=== PATIENT | female | born 1950 | race Caucasian/White ===

== ENCOUNTER 2018-05-20 15:37 | Inpatient (IN) ==
[2018-05-22] MEDS ORDERED: D5% in Water 1,000 ML IVC PRN (12:45)
[2018-05-22] MEDS ORDERED: Dextrose Gel 15 GM/37.5 ML TUBE PO PRN ×2 (12:45)
[2018-05-22] MEDS ORDERED: *HR* Dextrose 50 % in Water (Syg) 50 ML SYRINGE IVP PRN (12:45)
--- NOTE | 2018-05-22 14:33 | Internal Med History&Physical ---
Date of Encounter: 05/22/18 Time of Encounter: 14:30 Assessment and Plan (1) Status post total left knee replacement Current visit: Yes Status: Acute Patient is an admission for rehabilitation due to deconditioning secondary to a left total knee replacement. Patient had a elective left total knee replacement and per medical records had an uneventful recovery at an [facility]. Left knee incision appears healthy and intact with small amount of ecchymosis noticed surrounding incision. Slight swelling noted. We will continue with continuous icing. Pain is been well managed with current medications. Physical therapy evaluation with recommendations pending. We will continue on current anticoagulation. (2) Hypertension Current visit: Yes Status: Chronic Vital signs are stable. We will continue with current medications. Qualifiers: Hypertension type: essential hypertension Qualified Code(s): I10 - Essential (primary) hypertension (3) Depression Current visit: Yes Status: Chronic Patient currently denies any issues and appears to be interacting well with staff. We will continue with current medications. Qualifiers: Depression Type: unspecified Qualified Code(s): F32.9 - Major depressive disorder, single episode, unspecified (4) GERD (gastroesophageal reflux disease) Current visit: Yes Status: Chronic Patient denies any reflux. We will continue on current medications. Qualifiers: Esophagitis presence: without esophagitis Qualified Code(s): K21.9 - Gastro -esophageal reflux disease without esophagitis Internal Medicine - H&P: HPI Chief complaint: Left Total Knee Replacement Admitted From: Intrahospital Transfer Plans for Post Hospital Care: Home History of present illness: Ms. Gallardo is a 68 year old female who had a left total knee replacement at an [facility]. Per medical records patient had history of osteoarthritis, GERD , depression and hypertension. Patient states that she had an uneventful recovery and feels that she has been progressing well with physical therapy at the hospital prior to admission to this facility. Patient is here for physical therapy due to deconditioning secondary to her left total knee replacement. Patient states that she has some pain during mobilization but that has been tolerable and her pain medications have been effective. Patient denies any other discomforts or shortness of breath. Left knee currently has continuous icing and place. Past Med Surg Social Fam HX - Past Medical History Medical history: arthritis, DVT, diabetes, GERD Additional medical history: diverticulosis Psychiatric history: depression - Past Surgical History Surgical History: appendectomy, cancer surgery, cholecystectomy, orthopedic, other Additional surgical history: hx of throat nodules,r foot x2,inocencia carpal tunnel - Social History Smoking Status: Never smoker Smokeless Tobacco Status: No Alcohol use: unknown Drug use: unknown Internal Medicine - H&P: Meds Aspirin 81 mg PO DAILY 02/22/17 [History] Dicyclomine [Bentyl] 10 mg PO QID 02/22/17 [History] Escitalopram [Lexapro] 10 mg PO DAILY 02/22/17 [History] Gabapentin [Neurontin] 300 mg PO HS 02/22/17 [History] Metformin HCl [Glucophage] 1,000 mg PO BID 02/22/17 [History] [place]-3/Dha/Epa/Fish Oil [Fish Oil 1,000 mg Softgel] 1 each PO DAILY 02/22/17 [ History] Pantoprazole Sodium [Protonix] 40 mg PO DAILY 02/22/17 [History] Polyethylene Glycol 3350 [MiraLAX Powder Bulk 17.9 Oz] 1 scoop PO DAILY [History] Solifenacin Succinate [Vesicare] 5 mg PO DAILY 02/22/17 [History] Sulindac 200 mg PO BID 02/22/17 [History] Tea Tree Oil [Tea Tree] 1 appl TP DAILY 02/22/17 [History] Tizanidine HCl 2 mg PO Q8H PRN 02/22/17 [History] Cephalexin [Keflex] 500 mg PO TID #21 capsule 09/19/17 [Rx] Ranitidine HCl [Acid Commercial Portfolio Manager] 75 mg PO BID 09/19/17 [History] Topiramate [Topamax] 100 mg PO DAILY 09/19/17 [History] 3 Allergy/AdvReac Type Severity Reaction Status Date / Time No Known Allergies Allergy Verified 02/22/17 12:23 All Systems PM: A 10-system review of systems was performed and is negative for pertinent findings except as documented above in the HPI. - Constitutional Constitutional: no chills, no fever(s), no night sweats - EENT Eyes: no change in vision, no discharge, no pain, no photophobia Ears: no ear discharge, no ear pain, no tinnitus Nose, mouth and throat: no dysphagia, no nasal discharge, no neck pain, no sore throat - Cardiovascular Cardiovascular ROS IM: no chest pain, no diaphoresis, no dyspnea, no lightheadedness, no palpitations, no syncope - Respiratory Respiratory: no cough, no dyspnea, no wheezing, no excessive phlegm production - Gastrointestinal Gastrointestinal: no abdominal pain, no diarrhea, no hematemesis, no hematochezia, no melena, no nausea, no vomiting - Genitourinary Genitourinary: no change in urinary stream, no dysuria, no flank pain, no hematuria - Musculoskeletal Musculoskeletal ROS IM: no numbness, no tingling - Integumentary Integumentary IM: no rash, no unusual bruising - Neurological Neurological ROS: no confusion, no convulsions, no focal weakness, no numbness, no tingling, no tremor(s) - Hematologic/Lymphatic Hematologic/Lymphatic: no easy bruising - Constitutional Vitals: Temp Pulse Resp BP Pulse Ox 98.5 F 71 17 112/56 97 05/22/18 12:14 05/22/18 12:14 05/22/18 12:14 05/22/18 12:14 05/22/18 12:14 General appearance: Present: A&O X 3 - Head Head exam: Present: atraumatic, normocephalic - Eye Eye exam: Present: PERRL, conjuntiva pink, sclera anicteric Pupils: Present: PERRL - Neck Neck exam general surgery: Present: supple, trachea midline. Absent: lymphadenopathy - Respiratory Respiratory exam: Present: CTAB. Absent: accessory muscle use, rales, rhonchi, wheezes - Cardiovascular Cardiovascular exam: Present: RRR, +S1, +S2. Absent: diastolic murmur, gallop, rubs, systolic murmur - GI/Abdominal GI/Abdominal exam: Present: normal bowel sounds, soft, no peritoneal signs. Absent: distended, tenderness - Extremities Exam Extremities exam: Present: warm, radial pulses palpable and symmetrical. Absent : calf tenderness, cyanotic, pedal edema Additional comments: Left knee with a midline incision with small amount of ecchymosis noted surrounding the incision. Incision appears healthy and intact. Knee has continuous icing and place. Slight edema noted. Distal CV checks within normal limits - Neurological Exam Neurological exam: Present: CN II-XII intact, oriented X3, no focal deficits. Absent: pronater drift, facial droop, speech deficit - Skin Skin exam: Present: dry, intact - VTE Documentation of Mechanical Device: Graduated compression elastic hosiery
[2018-05-22] MEDS: Insulin LISPRO 300 UNITS/3 ML VIAL SQ SCH ×2 (16:22→20:15)
[2018-05-22] MEDS: *HR* Metformin 500 MG TABLET PO SCH (16:31)
[2018-05-22] MEDS: Melatonin 3 MG TABLET PO SCH (20:10)
[2018-05-22] MEDS: *HR* OxyCODONE Immed Rel 5 MG TABLET PO PRN (20:10)
[2018-05-22] MEDS: Gabapentin 300 MG CAPSULE PO SCH (20:10)
[2018-05-23] MEDS: *HR* OxyCODONE Immed Rel 5 MG TABLET PO PRN ×4 (02:19→21:22)
[2018-05-23] MEDS: *HR* Enoxaparin 40 MG/0.4 ML SYRINGE SQ SCH (05:00)
[2018-05-23 08:31] LABS: INR 1.2; Prothrombin Time 13.9 Seconds (9.4-12.1)
[2018-05-23 08:34] LABS: Activated Partial Thrombo Time 34.1 Seconds (26.0-36.0)
[2018-05-23 08:36] LABS: Basophils # 0.1 K/mcL (0.0-0.2); Basophils % 0.7 %; Eosinophils # 0.1 K/mcL (0.0-0.6); Eosinophils % 1.9 %; Hematocrit 27.8 % (35.3-44.9); Hemoglobin 9.3 g/dL (11.5-15.4); Immature Granulocytes % 5.1 % (0-4); Lymphocytes # 1.4 K/mcL (0.6-4.6); Lymphocytes % 19.3 %; Mean Corpuscular HGB Conc 33.5 g/dL (31.6-35.5); Mean Corpuscular Hemoglobin 30.9 pg (28.0-33.3); Mean Corpuscular Volume 92.4 fL (83.0-100.0); Mean Platelet Volume 10.7 fL (9.4-12.4); Monocytes # 0.5 K/mcL (0.0-1.3); Monocytes % 6.5 %; Neutrophils # 4.8 K/mcL (1.6-8.9); Platelet Count 205 K/mcL (140-400); Red Blood Count 3.01 M/mcL (3.82-4.97); Segmented Neutrophils % 66.5 %
[2018-05-23] MEDS: Insulin LISPRO 300 UNITS/3 ML VIAL SQ SCH ×4 (08:55→21:12)
[2018-05-23] MEDS: Cholecalciferol (D-3) 1,000 UNIT TABLET PO SCH (08:59)
[2018-05-23] MEDS: *HR* Metformin 500 MG TABLET PO SCH ×2 (08:59→17:02)
[2018-05-23] MEDS: Aspirin 81 MG TAB.CHEW PO SCH (08:59)
[2018-05-23 10:04] LABS: BUN/Creatinine Ratio 20 (6-26); Blood Urea Nitrogen 15 mg/dL (8-23); Calcium 9.2 mg/dL (8.6-10.3); Carbon Dioxide 30 mEq/L (23-29); Chloride 101 mEq/L (98-107); Glucose 129 mg/dL (70-105); Osmolality,Calculated 287 (280-300); Potassium 4.3 mEq/L (3.5-5.1); Sodium 137 mEq/L (136-145); eGFR For Non-African Americans > 60 (> 60)
[2018-05-23 10:13] LABS: Platelet Estimate Normal (Normal)
[2018-05-23] MEDS: Melatonin 3 MG TABLET PO SCH (21:21)
[2018-05-23] MEDS: Gabapentin 300 MG CAPSULE PO SCH (21:22)
[2018-05-24] MEDS: *HR* OxyCODONE Immed Rel 5 MG TABLET PO PRN ×3 (03:02→20:23)
[2018-05-24] MEDS: *HR* Enoxaparin 40 MG/0.4 ML SYRINGE SQ SCH (05:25)
[2018-05-24] MEDS: Aspirin 81 MG TAB.CHEW PO SCH (08:20)
[2018-05-24] MEDS: Cholecalciferol (D-3) 1,000 UNIT TABLET PO SCH (08:20)
[2018-05-24] MEDS: *HR* Metformin 500 MG TABLET PO SCH ×2 (08:20→17:37)
[2018-05-24] MEDS: Insulin LISPRO 300 UNITS/3 ML VIAL SQ SCH ×4 (08:20→20:25)
--- NOTE | 2018-05-24 12:56 | Internal Med Progress Note ---
Date of Encounter: 05/24/18 Time of Encounter: 12:40 - Assessment and plan (1) Status post total left knee replacement Current Visit: Yes Status: Acute Assessment and plan: Routine care/management per PT. (2) Hypertension Current Visit: Yes Status: Chronic Assessment and plan: Continue current regimen. Qualifiers: Hypertension type: essential hypertension Qualified Code(s): I10 - Essential (primary) hypertension (3) Depression Current Visit: Yes Status: Chronic Assessment and plan: Continue current regimen. Qualifiers: Depression Type: unspecified Qualified Code(s): F32.9 - Major depressive disorder, single episode, unspecified (4) GERD (gastroesophageal reflux disease) Current Visit: Yes Status: Chronic Assessment and plan: Continue current regimen. Qualifiers: Esophagitis presence: without esophagitis Qualified Code(s): K21.9 - Gastro -esophageal reflux disease without esophagitis (5) Dark stools Current Visit: Yes Status: Acute Assessment and plan: Will obtain FOBT and H&H; will manage accordingly. - Time Spent With Patient less than 15 minutes - Subjective Interval history: Left knee has been doing great; some pain after PT, but adequately controlled with the current pain regimen. In addition, the patient has noticed that her stools have been really dark. - Constitutional Vitals: Temp Pulse Resp BP Pulse Ox 99.6 F 66 16 110/70 99 05/24/18 11:35 05/24/18 11:35 05/24/18 11:35 05/24/18 11:35 05/24/18 11:35 General appearance: Present: A&O X 3 Exam: Gen: A&Ox3, NAD. HEENT: NCAT. Neck: No palpable lymphadenopathy or thyromegaly. CV: RRR, S1S2. No murmur. Capillary refill < 2 seconds. Pulm: CTAB. Abd: (+)BS. NDNT. Neuro: LLE weakness due to left knee pain, otherwise non-focal. Skin: No rash. Ext: No pitting edema. Internal Medicine: Result - Labs CBC & Chem 7: 05/23/18 07:30 05/23/18 07:30 - ABG Interpretation ABG results: PT/INR, D-dimer PT 13.9 Seconds (9.4-12.1) H 05/23/18 07:30 - VTE Documentation of Mechanical Device: Graduated compression elastic hosiery Consult Discharge Plan - Plan Referrals: Ortiz Marti MD [Primary Care Provider] -
[2018-05-24 13:51] LABS: Hematocrit 29.1 % (35.3-44.9); Hemoglobin 9.8 g/dL (11.5-15.4)
[2018-05-24] MEDS: Gabapentin 300 MG CAPSULE PO SCH (20:22)
[2018-05-24] MEDS: Melatonin 3 MG TABLET PO SCH (20:22)
[2018-05-25] MEDS: *HR* OxyCODONE Immed Rel 5 MG TABLET PO PRN ×3 (01:55→18:26)
[2018-05-25 02:41] LABS: Basophils % 0.4 %; Eosinophils # 0.1 K/mcL (0.0-0.6); Immature Granulocytes % 4.3 % (0-4); Lymphocytes # 1.2 K/mcL (0.6-4.6); Lymphocytes % 16.8 %; Mean Corpuscular HGB Conc 33.3 g/dL (31.6-35.5); Mean Corpuscular Hemoglobin 31.3 pg (28.0-33.3); Mean Corpuscular Volume 93.8 fL (83.0-100.0); Mean Platelet Volume 10.1 fL (9.4-12.4); Monocytes # 0.6 K/mcL (0.0-1.3); Monocytes % 8.6 %; Neutrophils # 4.8 K/mcL (1.6-8.9); Platelet Count 229 K/mcL (140-400); Red Blood Count 2.88 M/mcL (3.82-4.97); Red Cell Distribution Width 13.3 % (11.5-14.5); Segmented Neutrophils % 67.9 %
[2018-05-25 02:57] LABS: Alanine Aminotransferase 10 Units/L (7-52); Albumin 3.3 g/dL (3.5-5.7); Albumin/Globulin Ratio 1.3 (1.1-2.2); Alkaline Phosphatase 42 Units/L (34-104); Aspartate Amino Transferase 20 Units/L (13-39); BUN/Creatinine Ratio 23 (6-26); Bilirubin,Total 0.8 mg/dL (0.3-1.0); Blood Urea Nitrogen 19 mg/dL (8-23); Calcium 9.1 mg/dL (8.6-10.3); Carbon Dioxide 29 mEq/L (23-29); Chloride 100 mEq/L (98-107); Globulin 2.5 g/dL (2.4-3.5); Glucose 134 mg/dL (70-105); Osmolality,Calculated 286 (280-300); Potassium 4.1 mEq/L (3.5-5.1); Sodium 136 mEq/L (136-145); Total Protein 5.8 g/dL (6.4-8.9); eGFR For Non-African Americans > 60 (> 60)
[2018-05-25] MEDS ORDERED: Isovue-370 500 ML INFUS..BTL IV ONE (03:35)
[2018-05-25] MEDS: *HR* Enoxaparin 40 MG/0.4 ML SYRINGE SQ SCH (06:18)
[2018-05-25] MEDS: Cholecalciferol (D-3) 1,000 UNIT TABLET PO SCH (08:09)
[2018-05-25] MEDS: Aspirin 81 MG TAB.CHEW PO SCH (08:09)
[2018-05-25] MEDS: Insulin LISPRO 300 UNITS/3 ML VIAL SQ SCH ×4 (08:09→21:17)
--- NOTE | 2018-05-25 08:49 | Internal Med Progress Note ---
Date of Encounter: 05/25/18 Time of Encounter: 08:30 - Assessment and plan (1) Status post total left knee replacement Current Visit: Yes Status: Acute Assessment and plan: Routine care/management per PT. (2) Hypertension Current Visit: Yes Status: Chronic Assessment and plan: Continue current regimen. Qualifiers: Hypertension type: essential hypertension Qualified Code(s): I10 - Essential (primary) hypertension (3) Depression Current Visit: Yes Status: Chronic Assessment and plan: Continue current regimen. Qualifiers: Depression Type: unspecified Qualified Code(s): F32.9 - Major depressive disorder, single episode, unspecified (4) GERD (gastroesophageal reflux disease) Current Visit: Yes Status: Chronic Assessment and plan: Continue current regimen. Qualifiers: Esophagitis presence: without esophagitis Qualified Code(s): K21.9 - Gastro -esophageal reflux disease without esophagitis (5) Dark stools Current Visit: Yes Status: Acute Assessment and plan: H&H overall stable. Awaiting FOBT. Will continue to monitor. (6) Elevated d-dimer Current Visit: Yes Status: Acute Assessment and plan: - CTPE (-) for clot, but has a RLL nodule, which will need to followed up outpatient. - DVT scan in process, will manage accordingly. - Subjective Interval history: Had an eventful night, with diaphoresis, paleness, a one-time episode of CP, and possible syncope. Patient reports feeling much better this morning and does not have anymore CP. Reassured that she did not have a PE. Also reassured that EKG was non-ischemic and troponin was (-). - Constitutional Vitals: Temp Pulse Resp BP Pulse Ox 98.2 F 81 16 107/64 99 05/25/18 07:49 05/25/18 07:49 05/25/18 07:49 05/25/18 07:49 05/25/18 07:49 General appearance: Present: A&O X 3 Exam: Gen: A&Ox3, NAD. HEENT: NCAT. Neck: No palpable lymphadenopathy or thyromegaly. CV: RRR, S1S2. No murmur. Capillary refill < 2 seconds. Pulm: CTAB. Abd: (+)BS. NDNT. Neuro: LLE weakness due to left knee pain, otherwise non-focal. Skin: No rash. Ext: No pitting edema. Internal Medicine: Result - Labs CBC & Chem 7: 05/25/18 02:30 05/25/18 02:30 Labs: Short CBC 05/24/18 05/25/18 Range/Units 13:45 02:30 WBC 7.0 (4.3-11.1) K/mcL Hgb 9.8 L 9.0 L (11.5-15.4) g/dL Hct 29.1 L 27.0 L (35.3-44.9) % Plt Count 229 (140-400) K/mcL Neutrophils # 4.8 (1.6-8.9) K/mcL BMP 05/25/18 02:30 Sodium 136 Potassium 4.1 Chloride 100 Carbon Dioxide 29 BUN 19 Creatinine 0.82 Glucose 134 H Calcium 9.1 Cardiac Enzymes 05/25/18 Range/Units 02:30 Troponin I < 0.03 (< 0.04) ng/mL Liver Function 05/25/18 Range/Units 02:30 Total Bilirubin 0.8 (0.3-1.0) mg/dL AST 20 (13-39) Units/L ALT 10 (7-52) Units/L Alkaline Phosphatase 42 (34-104) Units/L Albumin 3.3 L (3.5-5.7) g/dL - ABG Interpretation ABG results: PT/INR, D-dimer PT 13.9 Seconds (9.4-12.1) H 05/23/18 07:30 D-Dimer 6401 ng/mLFEU (0-500) H 05/25/18 02:30 - Impressions Impressions Chest CTA 05/25/18 03:35 IMPRESSION: 1. No definite scan evidence for pulmonary embolus. 2. Enlarging subsolid right lower lobe pulmonary nodule with central lucency. D/ / Romie Wilder MD / Romie Wilder MD Interpreting Provider: Romie Wilder MD - VTE Documentation of Mechanical Device: Graduated compression elastic hosiery Consult Discharge Plan - Plan Referrals: Ortiz Marti MD [Primary Care Provider] -
[2018-05-25] MEDS ORDERED: *HR* Enoxaparin 60 MG/0.6 ML SYRINGE SQ ONE (10:03)
[2018-05-25] MEDS: *HR* Enoxaparin 100 MG/ML SYRINGE SQ SCH (18:24)
[2018-05-25] MEDS: Gabapentin 300 MG CAPSULE PO SCH (21:17)
[2018-05-25] MEDS: Melatonin 3 MG TABLET PO SCH (21:17)
[2018-05-26] MEDS: *HR* OxyCODONE Immed Rel 5 MG TABLET PO PRN ×3 (03:22→21:06)
[2018-05-26] MEDS: *HR* Enoxaparin 100 MG/ML SYRINGE SQ SCH ×2 (05:52→17:04)
[2018-05-26 06:18] LABS: Basophils % 0.5 %; Eosinophils # 0.1 K/mcL (0.0-0.6); Eosinophils % 2.3 %; Hematocrit 26.5 % (35.3-44.9); Hemoglobin 8.8 g/dL (11.5-15.4); Immature Granulocytes % 4.7 % (0-4); Lymphocytes # 1.3 K/mcL (0.6-4.6); Lymphocytes % 21.7 %; Mean Corpuscular HGB Conc 33.2 g/dL (31.6-35.5); Mean Corpuscular Hemoglobin 30.9 pg (28.0-33.3); Mean Platelet Volume 10.3 fL (9.4-12.4); Monocytes # 0.6 K/mcL (0.0-1.3); Monocytes % 9.9 %; Neutrophils # 3.8 K/mcL (1.6-8.9); Nucleated Red Blood Cells 0.3 /100 WBC (0); Platelet Count 243 K/mcL (140-400); Red Blood Count 2.85 M/mcL (3.82-4.97); Red Cell Distribution Width 13.4 % (11.5-14.5); Segmented Neutrophils % 60.9 %
[2018-05-26 06:33] LABS: BUN/Creatinine Ratio 20 (6-26); Blood Urea Nitrogen 15 mg/dL (8-23); Calcium 9.1 mg/dL (8.6-10.3); Carbon Dioxide 29 mEq/L (23-29); Chloride 101 mEq/L (98-107); Glucose 113 mg/dL (70-105); Osmolality,Calculated 284 (280-300); Potassium 3.8 mEq/L (3.5-5.1); Sodium 136 mEq/L (136-145); eGFR For Non-African Americans > 60 (> 60)
[2018-05-26] MEDS: Insulin LISPRO 300 UNITS/3 ML VIAL SQ SCH ×4 (07:52→20:29)
[2018-05-26] MEDS: Cholecalciferol (D-3) 1,000 UNIT TABLET PO SCH (08:44)
[2018-05-26] MEDS: Aspirin 81 MG TAB.CHEW PO SCH (08:44)
--- NOTE | 2018-05-26 11:29 | Internal Med Progress Note ---
Date of Encounter: 05/26/18 Time of Encounter: 11:00 - Assessment and plan (1) Status post total left knee replacement Current Visit: Yes Status: Acute Assessment and plan: Routine care/management per PT. (2) Hypertension Current Visit: Yes Status: Chronic Assessment and plan: Continue current regimen. Qualifiers: Hypertension type: essential hypertension Qualified Code(s): I10 - Essential (primary) hypertension (3) Depression Current Visit: Yes Status: Chronic Assessment and plan: Continue current regimen. Qualifiers: Depression Type: unspecified Qualified Code(s): F32.9 - Major depressive disorder, single episode, unspecified (4) GERD (gastroesophageal reflux disease) Current Visit: Yes Status: Chronic Assessment and plan: Continue current regimen. Qualifiers: Esophagitis presence: without esophagitis Qualified Code(s): K21.9 - Gastro -esophageal reflux disease without esophagitis (5) Dark stools Current Visit: Yes Status: Acute Assessment and plan: H&H overall stable. Awaiting FOBT. Will continue to monitor. (6) Elevated d-dimer Current Visit: Yes Status: Acute Assessment and plan: - CTPE (-) for clot, but has a RLL nodule, which will need to followed up outpatient. - (+) for LLE DVT. (7) Lung nodule Current Visit: Yes Status: Chronic Assessment and plan: Per the patient, nodule was biopsied in the past, which was reportedly benign. Will need outpatient f/u on this. (8) DVT (deep venous thrombosis) Current Visit: Yes Status: Acute Assessment and plan: Continue therapeutic Lovenox for now. Qualifiers: DVT location: lower extremity Affected thrombotic vein of extremity: other lower extremity vein Chronicity: acute Laterality: left Qualified Code(s) : I82.492 - Acute embolism and thrombosis of other specified deep vein of left lower extremity - Time Spent With Patient less than 15 minutes - Subjective Interval history: Feeling "a lot better than yesterday." Slept well overnight with Benadryl (we were out of melatonin). Per the patient, her lung nodule was biopsied before, which was benign reportedly. - Constitutional Vitals: Temp Pulse Resp BP Pulse Ox 98.3 F 75 16 129/56 96 05/26/18 06:50 05/26/18 06:50 05/26/18 06:50 05/26/18 06:50 05/26/18 06:50 General appearance: Present: A&O X 3 Exam: Gen: A&Ox3, NAD. HEENT: NCAT. Neck: No palpable lymphadenopathy or thyromegaly. CV: RRR, S1S2. No murmur. Pulm: CTAB. Abd: (+)BS. NDNT. Neuro: LLE weakness due to left knee pain, otherwise non-focal. Skin: No rash. Dressing over left knee c/d/i. Ext: No pitting edema. (-) calf tenderness. Internal Medicine: Result - Labs CBC & Chem 7: 05/26/18 05:30 05/26/18 05:30 Labs: Short CBC 05/26/18 Range/Units 05:30 WBC 6.2 (4.3-11.1) K/mcL Hgb 8.8 L (11.5-15.4) g/dL Hct 26.5 L (35.3-44.9) % Plt Count 243 (140-400) K/mcL Neutrophils # 3.8 (1.6-8.9) K/mcL BMP 05/26/18 05:30 Sodium 136 Potassium 3.8 Chloride 101 Carbon Dioxide 29 BUN 15 Creatinine 0.74 Glucose 113 H Calcium 9.1 - ABG Interpretation ABG results: PT/INR, D-dimer PT 13.9 Seconds (9.4-12.1) H 05/23/18 07:30 D-Dimer 6401 ng/mLFEU (0-500) H 05/25/18 02:30 - VTE Documentation of Mechanical Device: Graduated compression elastic hosiery Consult Discharge Plan - Plan Referrals: Ortiz Marti MD [Primary Care Provider] -
[2018-05-26] MEDS: Melatonin 3 MG TABLET PO SCH (20:17)
[2018-05-26] MEDS: Gabapentin 300 MG CAPSULE PO SCH (20:17)
[2018-05-27] MEDS: *HR* Enoxaparin 100 MG/ML SYRINGE SQ SCH ×2 (05:22→17:08)
[2018-05-27] MEDS: Cholecalciferol (D-3) 1,000 UNIT TABLET PO SCH (07:57)
[2018-05-27] MEDS: Aspirin 81 MG TAB.CHEW PO SCH (07:57)
[2018-05-27] MEDS: Insulin LISPRO 300 UNITS/3 ML VIAL SQ SCH ×4 (08:09→20:57)
[2018-05-27] MEDS: *HR* Metformin 500 MG TABLET PO SCH ×2 (09:35→17:09)
[2018-05-27] MEDS: *HR* OxyCODONE Immed Rel 5 MG TABLET PO PRN ×2 (09:52→21:16)
--- NOTE | 2018-05-27 13:05 | Internal Med Progress Note ---
Date of Encounter: 05/27/18 Time of Encounter: 13:02 - Assessment and plan (1) Status post total left knee replacement Current Visit: Yes Status: Acute Assessment and plan: Participating well with therapy. Continue PT and OT. Will follow progress. Pain controlled with current pain medication. Follow up with ortho as scheduled. (2) Anemia Current Visit: Yes Status: Acute Assessment and plan: Hemoglobin 8.8 today. Will repeat labs in the morning and follow for results. Qualifiers: Anemia type: unspecified type Qualified Code(s): D64.9 - Anemia, unspecified (3) DVT (deep venous thrombosis) Current Visit: Yes Status: Acute Assessment and plan: Continue Lovenox. Qualifiers: DVT location: lower extremity Affected thrombotic vein of extremity: other lower extremity vein Chronicity: acute Laterality: left Qualified Code(s) : I82.492 - Acute embolism and thrombosis of other specified deep vein of left lower extremity - Time Spent With Patient less than 15 minutes - Subjective Interval history: Participating well with therapy. Did have a slight dizzy spell. Denies chest pain or shortness of breath, fever, chills, nausea vomiting or diarrhea.. Will order orthostatic blood pressures. Will monitor. Maintaining appetite and hydration. Bowels moving as normal. States stools are not as dark as they were in the previous days. Hemoglobin 8.8 today. Order for fecal occult stool - Constitutional Vitals: Temp Pulse Resp BP Pulse Ox 98.2 F 77 14 141/83 91 05/27/18 11:23 05/27/18 11:23 05/27/18 11:23 05/27/18 11:23 05/27/18 11:23 General appearance: Present: cooperative, A&O X 3, pleasant, no acute distress, answers questions appropriately - Head Head exam: Present: atraumatic, normocephalic - Eye Eye exam: Present: PERRL, conjuntiva pink, sclera anicteric Pupils: Present: PERRL - Neck Neck exam general surgery: Present: supple, trachea midline. Absent: lymphadenopathy - Respiratory Respiratory exam: Present: CTAB. Absent: accessory muscle use, rales, rhonchi, wheezes - Cardiovascular Cardiovascular exam: Present: RRR, +S1, +S2. Absent: diastolic murmur, gallop, rubs, systolic murmur - GI/Abdominal GI/Abdominal exam: Present: normal bowel sounds, soft, no peritoneal signs. Absent: distended, tenderness - Extremities Exam Extremities exam: Present: warm, radial pulses palpable and symmetrical. Absent : calf tenderness, cyanotic, pedal edema Additional comments: Non-pitting edema to left lower extremity. - Incison Comments: Left surgical knee incision dressing dry and intact with slight bruising and edema surrounding incision. - Neurological Exam Neurological exam: Present: CN II-XII intact, oriented X3, no focal deficits. Absent: pronater drift, facial droop, speech deficit - Skin Skin exam: Present: dry, intact Internal Medicine: Result - Labs CBC & Chem 7: 05/26/18 05:30 05/26/18 05:30 - ABG Interpretation ABG results: PT/INR, D-dimer PT 13.9 Seconds (9.4-12.1) H 05/23/18 07:30 D-Dimer 6401 ng/mLFEU (0-500) H 05/25/18 02:30 - VTE Documentation of Mechanical Device: Graduated compression elastic hosiery Consult Discharge Plan - Plan Referrals: Ortiz Marti MD [Primary Care Provider] -
[2018-05-27] MEDS: Gabapentin 300 MG CAPSULE PO SCH (20:57)
[2018-05-27] MEDS: Melatonin 3 MG TABLET PO SCH (20:57)
[2018-05-28] MEDS: *HR* OxyCODONE Immed Rel 5 MG TABLET PO PRN ×5 (01:36→20:54)
[2018-05-28] MEDS: *HR* Enoxaparin 100 MG/ML SYRINGE SQ SCH ×2 (05:30→17:51)
[2018-05-28 07:25] LABS: Basophils % 0.4 %; Eosinophils # 0.2 K/mcL (0.0-0.6); Eosinophils % 1.7 %; Hemoglobin 9.1 g/dL (11.5-15.4); Immature Granulocytes % 3.9 % (0-4); Lymphocytes # 1.6 K/mcL (0.6-4.6); Mean Corpuscular HGB Conc 33.7 g/dL (31.6-35.5); Mean Corpuscular Hemoglobin 31.6 pg (28.0-33.3); Mean Corpuscular Volume 93.8 fL (83.0-100.0); Mean Platelet Volume 10.1 fL (9.4-12.4); Monocytes # 0.7 K/mcL (0.0-1.3); Monocytes % 7.7 %; Neutrophils # 6.4 K/mcL (1.6-8.9); Platelet Count 302 K/mcL (140-400); Red Blood Count 2.88 M/mcL (3.82-4.97); Segmented Neutrophils % 69.3 %
[2018-05-28 07:32] LABS: BUN/Creatinine Ratio 19 (6-26); Blood Urea Nitrogen 14 mg/dL (8-23); Carbon Dioxide 27 mEq/L (23-29); Chloride 101 mEq/L (98-107); Glucose 117 mg/dL (70-105); Osmolality,Calculated 282 (280-300); Potassium 3.8 mEq/L (3.5-5.1); Sodium 135 mEq/L (136-145); eGFR For Non-African Americans > 60 (> 60)
[2018-05-28] MEDS: Ondansetron ODT 4 MG TAB.RAPDIS SL PRN (09:30)
[2018-05-28] MEDS ORDERED: Furosemide 20 MG/2 ML VIAL IVP ONE ×2 (09:39→17:45)
--- NOTE | 2018-05-28 11:25 | Internal Med Progress Note ---
Date of Encounter: 05/28/18 Time of Encounter: 11:22 - Assessment and plan (1) Status post total left knee replacement Current Visit: Yes Status: Acute Assessment and plan: Participating well with therapy. Continue PT and OT. Will follow progress. Pain controlled with current pain medication. Follow up with ortho as scheduled. (2) Anemia Current Visit: Yes Status: Acute Assessment and plan: Hemoglobin 9.1 today. Symptomatic with dizziness and hypertension. Will order 2 units pack red blood cells. Will repeat labs after completed and follow for results. Qualifiers: Anemia type: unspecified type Qualified Code(s): D64.9 - Anemia, unspecified (3) DVT (deep venous thrombosis) Current Visit: Yes Status: Acute Assessment and plan: Continue Lovenox. Qualifiers: DVT location: lower extremity Affected thrombotic vein of extremity: other lower extremity vein Chronicity: acute Laterality: left Qualified Code(s) : I82.492 - Acute embolism and thrombosis of other specified deep vein of left lower extremity - Time Spent With Patient 25 - 35 minutes - Subjective Interval history: While trying to take a shower with occupational therapy, patient had a very dizzy episode. Became nauseous. Denies chest pain or shortness of breath. Hemoglobin 9.1 today. Blood pressure sitting 151/63 and standing 123/77. Discussed blood transfusion with patient and Dr. Truong. Zofran started as needed for nausea. Maintaining appetite and hydration. Denies fever, chills, vomiting or diarrhea. Bowels moving as normal. - Constitutional Vitals: Temp Pulse Resp BP Pulse Ox 98.2 F 78 20 123/72 96 05/28/18 11:16 05/28/18 11:16 05/28/18 11:16 05/28/18 11:16 05/28/18 11:16 General appearance: Present: cooperative, A&O X 3, pleasant, no acute distress, answers questions appropriately - Head Head exam: Present: atraumatic, normocephalic - Eye Eye exam: Present: PERRL, conjuntiva pink, sclera anicteric Pupils: Present: PERRL - Neck Neck exam general surgery: Present: supple, trachea midline. Absent: lymphadenopathy - Respiratory Respiratory exam: Present: CTAB. Absent: accessory muscle use, rales, rhonchi, wheezes - Cardiovascular Cardiovascular exam: Present: RRR, +S1, +S2. Absent: diastolic murmur, gallop, rubs, systolic murmur - GI/Abdominal GI/Abdominal exam: Present: normal bowel sounds, soft, no peritoneal signs. Absent: distended, tenderness - Extremities Exam Extremities exam: Present: warm, radial pulses palpable and symmetrical. Absent : calf tenderness, cyanotic, pedal edema - Incison Comments: Left knee incision dressing dry and intact. Small amount of surrounding edema with ecchymosis. - Neurological Exam Neurological exam: Present: CN II-XII intact, oriented X3, no focal deficits. Absent: pronater drift, facial droop, speech deficit - Skin Skin exam: Present: dry, intact Internal Medicine: Result - Labs CBC & Chem 7: 05/28/18 06:46 05/28/18 06:46 Labs: Short CBC 05/28/18 Range/Units 06:46 WBC 9.2 (4.3-11.1) K/mcL Hgb 9.1 L (11.5-15.4) g/dL Hct 27.0 L (35.3-44.9) % Plt Count 302 (140-400) K/mcL Neutrophils # 6.4 (1.6-8.9) K/mcL BMP 05/28/18 06:46 Sodium 135 L Potassium 3.8 Chloride 101 Carbon Dioxide 27 BUN 14 Creatinine 0.74 Glucose 117 H Calcium 9.0 - ABG Interpretation ABG results: PT/INR, D-dimer PT 13.9 Seconds (9.4-12.1) H 05/23/18 07:30 D-Dimer 6401 ng/mLFEU (0-500) H 05/25/18 02:30 - VTE Documentation of Mechanical Device: Graduated compression elastic hosiery Consult Discharge Plan - Plan Referrals: Ortiz Marti MD [Primary Care Provider] -
[2018-05-28] MEDS: Cholecalciferol (D-3) 1,000 UNIT TABLET PO SCH (11:49)
[2018-05-28] MEDS: *HR* Metformin 500 MG TABLET PO SCH ×2 (11:49→16:20)
[2018-05-28] MEDS: Aspirin 81 MG TAB.CHEW PO SCH (11:50)
[2018-05-28] MEDS: Insulin LISPRO 300 UNITS/3 ML VIAL SQ SCH ×3 (11:50→20:55)
[2018-05-28] MEDS: 0.9 % Sodium Chloride 250 ML IVC SCH ×2 (16:21→20:55)
[2018-05-28] MEDS: Gabapentin 300 MG CAPSULE PO SCH (20:54)
[2018-05-28] MEDS: Melatonin 3 MG TABLET PO SCH (20:54)
--- NOTE | 2018-05-28 21:47 | Electrocardiograph Report ---
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
[2018-05-29] MEDS: *HR* OxyCODONE Immed Rel 5 MG TABLET PO PRN ×3 (00:15→13:04)
[2018-05-29] MEDS: 0.9 % Sodium Chloride 250 ML IVC SCH (06:12)
[2018-05-29] MEDS: *HR* Enoxaparin 100 MG/ML SYRINGE SQ SCH ×2 (06:13→17:08)
[2018-05-29] MEDS: *HR* Metformin 500 MG TABLET PO SCH ×2 (09:04→17:09)
[2018-05-29] MEDS: Insulin LISPRO 300 UNITS/3 ML VIAL SQ SCH ×4 (09:04→20:33)
[2018-05-29] MEDS: Cholecalciferol (D-3) 1,000 UNIT TABLET PO SCH (09:04)
[2018-05-29] MEDS: Aspirin 81 MG TAB.CHEW PO SCH (09:04)
--- NOTE | 2018-05-29 09:08 | Internal Med History&Physical ---
Date of Encounter: 05/29/18 Time of Encounter: 09:07 Assessment and Plan (1) Status post total left knee replacement Current visit: Yes Status: Acute Patient with complaints of acute pain, secondary to hyperextending her surgical left knee medially after rolling over in bed and having her left leg swelling over the edge of bed. Left knee remains markedly swollen. Otherwise incision remains intact and appears healthy. Patient with ecchymosis noted mostly along the left medial thigh, but appears to be fading and reabsorbing. Patient does complain of pain during range of motion, but pain is tolerable with current pain medications. An x-ray was obtained of the left knee which shows no acute issues and hardware remains intact. We will discuss with Dr. Truong for further plan of care. (2) Hypertension Current visit: Yes Status: Chronic Vital signs are stable. Patient has had reported positive orthostatic blood pressure and continues to have complaints of dizziness with nausea. We will review current medications and discuss with Dr. Truong for further plans of care Qualifiers: Hypertension type: essential hypertension Qualified Code(s): I10 - Essential (primary) hypertension (3) GERD (gastroesophageal reflux disease) Current visit: Yes Status: Chronic Patient denies any reflux. We will continue on current medications. Qualifiers: Esophagitis presence: without esophagitis Qualified Code(s): K21.9 - Gastro -esophageal reflux disease without esophagitis (4) Dizziness Current visit: Yes Status: Acute Patient continues to have complaints of dizziness with nausea. Patient states that she has a aura-type feeling prior to her episodes of dizziness in which she becomes very warm and flushed to the face and diaphoretic. Patient had related a history of several occasions during which she had this episodes of dizziness with nausea over the past years, which she states that she relates to dehydration. Patient currently appears stable from a fluid standpoint. Last hemoglobin was 9.1 and patient received 2 units of packed RBCs for possible symptomatic anemia. No signs of active bleeding noted. Post transfusion hemoglobin pending. We will discuss with Dr. Truong for further recommendations. (5) DVT (deep venous thrombosis) Current visit: Yes Status: Acute Patient with DVT to the left leg. Continues on weight-based Lovenox. Continue to monitor. Currently denies any chest discomforts or shortness of breath. Qualifiers: DVT location: lower extremity Affected thrombotic vein of extremity: other lower extremity vein Chronicity: acute Laterality: left Qualified Code(s) : I82.492 - Acute embolism and thrombosis of other specified deep vein of left lower extremity Internal Medicine - H&P: HPI Admitted From: Intrahospital Transfer Plans for Post Hospital Care: Home History of present illness: Ms. Gallardo is a 68 year old female, who was admitted for rehabilitation due to deconditioning secondary to a left total knee replacement. Patient had a elective left total knee replacement and per medical records had an uneventful recovery at an [facility]. While at this facility for further rehabilitation patient has had recent complaints of dizziness with nausea when out of bed mobilizing. Patient reports patient has been positive on orthostatics. Most recent hemoglobin was 9.2 and patient was transfused with 2 units of packed RBCs, which had finished last evening and she had tolerated well. Post transfusion hemoglobin is pending. Patient states that she has had similar issues with dizziness and nausea on several occasions over the past several years, but she relates these symptoms to dehydration. Patient states she has not had any workup for these symptoms in the past. She states that prior to her episodes of dizziness that she can feel a warm feeling come over her and becomes diaphoretic and nauseated. Denies any palpitations or headaches. Denies any history of seizures. Last evening patient states that she injured her left knee all turning in bed. She states that the lower radials were all to bed and when she rolled over on her right side that her left leg slung over decided to bed causing her surgically repaired left knee to hyperextend medially. Left knee incision appears healthy and intact with moderate amount of ecchymosis noticed surrounding incision and along the medial left thigh. Moderate swelling noted and patient complains of pain during range of motion. Pain is been well managed with current medications. Patient's left leg has remained slightly swollen and she has had a venous Doppler performed on the left leg several days ago, which shows a left peroneal thrombus. We will continue on current anticoagulation of weight-based Lovenox. Past Med Surg Social Fam HX - Past Medical History Medical history: arthritis, DVT, diabetes, GERD Additional medical history: diverticulosis Psychiatric history: depression - Past Surgical History Surgical History: appendectomy, cancer surgery, cholecystectomy, orthopedic, other Additional surgical history: hx of throat nodules,r foot x2,inocencia carpal tunnel - Social History Smoking Status: Never smoker Smokeless Tobacco Status: No Alcohol use: unknown Drug use: unknown Internal Medicine - H&P: Meds Aspirin 81 mg PO DAILY 02/22/17 [History] Dicyclomine [Bentyl] 10 mg PO QID 02/22/17 [History] Escitalopram [Lexapro] 10 mg PO DAILY 02/22/17 [History] Gabapentin [Neurontin] 300 mg PO HS 02/22/17 [History] Metformin HCl [Glucophage] 1,000 mg PO BID 02/22/17 [History] Tony-3/Dha/Epa/Fish Oil [Fish Oil 1,000 mg Softgel] 1 each PO DAILY 02/22/17 [ History] Pantoprazole Sodium [Protonix] 40 mg PO DAILY 02/22/17 [History] Polyethylene Glycol 3350 [MiraLAX Powder Bulk 17.9 Oz] 1 scoop PO DAILY [History] Solifenacin Succinate [Vesicare] 5 mg PO DAILY 02/22/17 [History] Sulindac 200 mg PO BID 02/22/17 [History] Tea Tree Oil [Tea Tree] 1 appl TP DAILY 02/22/17 [History] Tizanidine HCl 2 mg PO Q8H PRN 02/22/17 [History] Cephalexin [Keflex] 500 mg PO TID #21 capsule 09/19/17 [Rx] Ranitidine HCl [Acid [employer]] 75 mg PO BID 09/19/17 [History] Topiramate [Topamax] 100 mg PO DAILY 09/19/17 [History] 3 Allergy/AdvReac Type Severity Reaction Status Date / Time No Known Allergies Allergy Verified 02/22/17 12:23 All Systems PM: A 10-system review of systems was performed and is negative for pertinent findings except as documented above in the HPI. - Constitutional Constitutional: as per HPI, no chills, no fever(s), no night sweats - EENT Eyes: no change in vision, no discharge, no pain, no photophobia Ears: no ear discharge, no ear pain, no tinnitus Nose, mouth and throat: no dysphagia, no nasal discharge, no neck pain, no sore throat - Cardiovascular Cardiovascular ROS IM: as per HPI, no chest pain, no diaphoresis, no dyspnea, no lightheadedness, no palpitations, no syncope - Respiratory Respiratory: as per HPI, no cough, no dyspnea, no wheezing, no excessive phlegm production - Gastrointestinal Gastrointestinal: no abdominal pain, no diarrhea, no hematemesis, no hematochezia, no melena, no nausea, no vomiting - Genitourinary Genitourinary: no change in urinary stream, no dysuria, no flank pain, no hematuria - Musculoskeletal Musculoskeletal ROS IM: as per HPI, no numbness, no tingling - Integumentary Integumentary IM: no rash, no unusual bruising - Neurological Neurological ROS: as per HPI, no confusion, no convulsions, no focal weakness, no numbness, no tingling, no tremor(s) - Hematologic/Lymphatic Hematologic/Lymphatic: no easy bruising - Constitutional Vitals: Temp Pulse Resp BP Pulse Ox 97.7 F 84 20 151/82 98 05/29/18 08:50 05/29/18 08:50 05/29/18 08:50 05/29/18 08:50 05/29/18 08:50 General appearance: Present: cooperative, A&O X 3, pleasant, no acute distress, answers questions appropriately - Head Head exam: Present: atraumatic, normocephalic - Eye Eye exam: Present: PERRL, conjuntiva pink, sclera anicteric Pupils: Present: PERRL - Neck Neck exam general surgery: Present: supple, trachea midline. Absent: lymphadenopathy - Respiratory Respiratory exam: Present: CTAB. Absent: accessory muscle use, rales, rhonchi, wheezes - Cardiovascular Cardiovascular exam: Present: RRR, +S1, +S2. Absent: diastolic murmur, gallop, rubs, systolic murmur - GI/Abdominal GI/Abdominal exam: Present: normal bowel sounds, soft, no peritoneal signs. Absent: distended, tenderness - Extremities Exam Extremities exam: Present: warm, radial pulses palpable and symmetrical. Absent : calf tenderness, cyanotic, pedal edema Additional comments: Left knee continues to be swollen with complaints of mild pain during range of motion. Incision remains intact with ecchymosis noted along the incision and along the medial aspect of the left thigh. No signs of infection noted. No erythema - Neurological Exam Neurological exam: Present: CN II-XII intact, oriented X3, no focal deficits. Absent: pronater drift, facial droop, speech deficit - Skin Skin exam: Present: dry, intact Internal Med - H&P Results - Labs CBC & Chem 7: 05/28/18 06:46 05/28/18 06:46 - Impressions ITS Impressions Chest CTA 05/25/18 03:35 IMPRESSION: 1. No definite scan evidence for pulmonary embolus. 2. Enlarging subsolid right lower lobe pulmonary nodule with central lucency. D/ / Romie Wilder MD / Romie Wilder MD Interpreting Provider: Romie Wilder MD Knee X-Ray 05/29/18 08:35 IMPRESSION: Anatomic alignment status post left knee arthroplasty. No evidence of hardware complication. No acute osseous abnormality of the left knee. D/ / Leobardo Andrea MD / Leobardo Andrea MD Interpreting Provider: Leobardo Andrea MD - VTE Documentation of Mechanical Device: Graduated compression elastic hosiery
[2018-05-29] MEDS: tiZANidine 4 MG TABLET PO PRN (10:18)
[2018-05-29 11:54] LABS: Basophils % 0.3 %; Eosinophils % 0.1 %; Hematocrit 38.2 % (35.3-44.9); Hemoglobin 13.2 g/dL (11.5-15.4); Immature Granulocytes % 2.7 % (0-4); Lymphocytes # 1.1 K/mcL (0.6-4.6); Lymphocytes % 8.8 %; Mean Corpuscular HGB Conc 34.6 g/dL (31.6-35.5); Mean Corpuscular Hemoglobin 31.6 pg (28.0-33.3); Mean Corpuscular Volume 91.4 fL (83.0-100.0); Mean Platelet Volume 9.8 fL (9.4-12.4); Monocytes # 1.1 K/mcL (0.0-1.3); Monocytes % 8.5 %; Neutrophils # 9.9 K/mcL (1.6-8.9); Nucleated Red Blood Cells 0.2 /100 WBC (0); Platelet Count 355 K/mcL (140-400); Red Blood Count 4.18 M/mcL (3.82-4.97); Red Cell Distribution Width 14.3 % (11.5-14.5); Segmented Neutrophils % 79.6 %
[2018-05-29 12:03] LABS: Alanine Aminotransferase 18 Units/L (7-52); Albumin/Globulin Ratio 1.2 (1.1-2.2); Alkaline Phosphatase 51 Units/L (34-104); Aspartate Amino Transferase 26 Units/L (13-39); BUN/Creatinine Ratio 23 (6-26); Bilirubin,Total 1.3 mg/dL (0.3-1.0); Blood Urea Nitrogen 20 mg/dL (8-23); Calcium 9.8 mg/dL (8.6-10.3); Carbon Dioxide 28 mEq/L (23-29); Chloride 98 mEq/L (98-107); Globulin 3.4 g/dL (2.4-3.5); Glucose 177 mg/dL (70-105); Magnesium 1.6 mg/dL (1.6-2.6); Osmolality,Calculated 285 (280-300); Sodium 134 mEq/L (136-145); Total Protein 7.4 g/dL (6.4-8.9); eGFR For Non-African Americans > 60 (> 60)
--- NOTE | 2018-05-29 13:29 | Internal Med Progress Note ---
Date of Encounter: 05/29/18 Time of Encounter: 13:21 - Assessment and plan (1) Status post total left knee replacement Current Visit: Yes Status: Acute Assessment and plan: Last evening patient states that she injured her left knee all turning in bed. She states that the lower rails were all to bed and when she rolled over on her right side that her left leg slung over decided to bed causing her surgically repaired left knee to hyperextend medially. Left knee incision appears healthy and intact with moderate amount of ecchymosis noticed surrounding incision and along the medial left thigh. Moderate swelling noted and patient complains of pain during range of motion. Two-view x-ray was obtained which shows no acute issues and hardware intact. Pain is been well managed with current medications. Patient will continue on physical therapy. No further treatment will be offered to left knee as patient likely strained her knee when she hyperextended it (2) Hypertension Current Visit: Yes Status: Chronic Assessment and plan: Vital signs stable. We will continue with current medications. Qualifiers: Hypertension type: essential hypertension Qualified Code(s): I10 - Essential (primary) hypertension (3) GERD (gastroesophageal reflux disease) Current Visit: Yes Status: Chronic Assessment and plan: No acute issues. Patient will continue on current medications. Qualifiers: Esophagitis presence: without esophagitis Qualified Code(s): K21.9 - Gastro -esophageal reflux disease without esophagitis (4) Dizziness Current Visit: Yes Status: Acute Assessment and plan: Patient continues to have complaints of dizziness with nausea. Patient states that she has a aura-type feeling prior to her episodes of dizziness in which she becomes very warm and flushed to the face and diaphoretic. Patient had related a history of several occasions during which she had this episodes of dizziness with nausea over the past years, which she states that she relates to dehydration. Patient currently appears stable from a fluid standpoint. Last hemoglobin was 9.1 and patient received 2 units of packed RBCs for possible symptomatic anemia and currently has a hemoglobin of 13.2 this morning. No signs of active bleeding noted. We will discuss with Dr. Truong for further recommendations. (5) DVT (deep venous thrombosis) Current Visit: Yes Status: Acute Assessment and plan: Patient's left leg has remained slightly swollen and she has had a venous Doppler performed on the left leg several days ago, which shows a left peroneal thrombus. We will continue on current anticoagulation of weight-based Lovenox. Patient denies any chest discomforts or shortness of breath. Qualifiers: DVT location: lower extremity Affected thrombotic vein of extremity: other lower extremity vein Chronicity: acute Laterality: left Qualified Code(s) : I82.492 - Acute embolism and thrombosis of other specified deep vein of left lower extremity - Time Spent With Patient less than 15 minutes - Subjective Interval history: Patient with complaints of acute pain, secondary to hyperextending her surgical left knee medially after rolling over in bed and having her left leg swelling over the edge of bed. Left knee remains markedly swollen. Otherwise incision remains intact and appears healthy. Patient does complain of pain during range of motion, but pain is tolerable with current pain medications. An x-ray was obtained of the left knee which shows no acute issues and hardware remains intact. Patient continues to complain of intermittent dizziness with nausea during position changing and ambulation. Patient states the symptoms have been recurring intermittently since last Saturday and that they have not improved. Patient denies any palpitations or near syncope during these episodes of dizziness. Patient also received a transfusion of 2 units of packed RBCs last evening which she has tolerated well. Patient currently denies any dyspnea or palpitations. Denies any chest discomforts. Patient recently diagnosed with DVT to left leg and continues on Lovenox weight-based. - Constitutional Vitals: Temp Pulse Resp BP Pulse Ox 98.6 F 80 18 160/81 90 05/29/18 10:38 05/29/18 10:38 05/29/18 10:38 05/29/18 10:38 05/29/18 10:38 General appearance: Present: cooperative, A&O X 3, pleasant, no acute distress, answers questions appropriately - Head Head exam: Present: atraumatic, normocephalic - Eye Eye exam: Present: PERRL, conjuntiva pink, sclera anicteric Pupils: Present: PERRL - Neck Neck exam general surgery: Present: supple, trachea midline. Absent: lymphadenopathy - Respiratory Respiratory exam: Present: CTAB. Absent: accessory muscle use, rales, rhonchi, wheezes - Cardiovascular Cardiovascular exam: Present: RRR, +S1, +S2. Absent: diastolic murmur, gallop, rubs, systolic murmur - GI/Abdominal GI/Abdominal exam: Present: normal bowel sounds, soft, no peritoneal signs. Absent: distended, tenderness - Extremities Exam Extremities exam: Present: warm, radial pulses palpable and symmetrical. Absent : calf tenderness, cyanotic, pedal edema Additional comments: Left knee and thigh show slight nonpitting edema. Noted ecchymosis surrounding midline knee incision and to the left anterior thigh, which appears to be fading. Surgical incision appears healthy and intact. Complaints of slight tenderness during palpation of the left knee and during range of motion. - Neurological Exam Neurological exam: Present: CN II-XII intact, oriented X3, no focal deficits. Absent: pronater drift, facial droop, speech deficit - Skin Skin exam: Present: dry, intact Internal Medicine: Result - Labs CBC & Chem 7: 05/29/18 11:33 05/29/18 11:33 Labs: Short CBC 05/29/18 Range/Units 11:33 WBC 12.4 H (4.3-11.1) K/mcL Hgb 13.2 D (11.5-15.4) g/dL Hct 38.2 (35.3-44.9) % Plt Count 355 (140-400) K/mcL Neutrophils # 9.9 H (1.6-8.9) K/mcL BMP 05/29/18 11:33 Sodium 134 L Potassium 4.0 Chloride 98 Carbon Dioxide 28 BUN 20 Creatinine 0.88 Glucose 177 H Calcium 9.8 Liver Function 05/29/18 Range/Units 11:33 Total Bilirubin 1.3 H (0.3-1.0) mg/dL AST 26 (13-39) Units/L ALT 18 (7-52) Units/L Alkaline Phosphatase 51 (34-104) Units/L Albumin 4.0 (3.5-5.7) g/dL - ABG Interpretation ABG results: PT/INR, D-dimer PT 13.9 Seconds (9.4-12.1) H 05/23/18 07:30 D-Dimer 6401 ng/mLFEU (0-500) H 05/25/18 02:30 - Impressions Impressions Knee X-Ray 05/29/18 08:35 IMPRESSION: Anatomic alignment status post left knee arthroplasty. No evidence of hardware complication. No acute osseous abnormality of the left knee. D/ / Leobardo Andrea MD / Leobardo Andrea MD Interpreting Provider: Leobardo Andrea MD - VTE Documentation of Mechanical Device: Graduated compression elastic hosiery Consult Discharge Plan - Plan Referrals: Ortiz Marti MD [Primary Care Provider] -
[2018-05-29] MEDS: *HR* HYDROcodone/Acet 5/325 mg TABLET PO PRN ×2 (17:09→21:39)
[2018-05-29] MEDS: Acetaminophen 325 MG TABLET PO PRN (19:56)
[2018-05-29] MEDS: Melatonin 3 MG TABLET PO SCH (19:56)
[2018-05-29] MEDS: Gabapentin 300 MG CAPSULE PO SCH (19:57)
[2018-05-30] MEDS: *HR* HYDROcodone/Acet 5/325 mg TABLET PO PRN ×4 (03:11→20:40)
[2018-05-30] MEDS: Acetaminophen 325 MG TABLET PO PRN ×2 (04:15→08:21)
[2018-05-30] MEDS: tiZANidine 4 MG TABLET PO PRN ×2 (04:16→11:10)
[2018-05-30] MEDS: *HR* Enoxaparin 100 MG/ML SYRINGE SQ SCH ×2 (06:01→17:18)
[2018-05-30] MEDS: Insulin LISPRO 300 UNITS/3 ML VIAL SQ SCH ×4 (08:12→20:47)
[2018-05-30] MEDS: Cholecalciferol (D-3) 1,000 UNIT TABLET PO SCH (08:22)
[2018-05-30] MEDS: Aspirin 81 MG TAB.CHEW PO SCH (08:22)
[2018-05-30] MEDS: *HR* Metformin 500 MG TABLET PO SCH ×2 (08:23→17:16)
--- NOTE | 2018-05-30 13:50 | Internal Med Progress Note ---
Date of Encounter: 05/30/18 Time of Encounter: 13:48 - Assessment and plan (1) Status post total left knee replacement Current Visit: Yes Status: Acute Assessment and plan: Patient appears to be dissipating and physical therapy well today. States that the pain to her left knee has subsided somewhat since her insulin yesterday when she heart her extended her knee while in bed. Left knee does appear slightly swollen, which is unchanged on her exam. Pain continues to be well- controlled with current medication. We will continue with physical therapy and current plan of care. (2) Hypertension Current Visit: Yes Status: Chronic Assessment and plan: Vital signs stable. We will continue with current medications. Qualifiers: Hypertension type: essential hypertension Qualified Code(s): I10 - Essential (primary) hypertension (3) GERD (gastroesophageal reflux disease) Current Visit: Yes Status: Chronic Assessment and plan: No acute issues. Patient will continue on current medications. Qualifiers: Esophagitis presence: without esophagitis Qualified Code(s): K21.9 - Gastro -esophageal reflux disease without esophagitis (4) Dizziness Current Visit: Yes Status: Acute Assessment and plan: Patient states today that her dizziness and nausea has subsided since yesterday. Patient had complained of suspicions of the oxycodone causing issues , which was discontinued yesterday replacement [place]. Patient states since that time that her dizziness has resolved. Patient states that her pain is well -controlled with [place]. (5) DVT (deep venous thrombosis) Current Visit: Yes Status: Acute Assessment and plan: Patient's left leg has remained slightly swollen and she has had a venous Doppler performed on the left leg several days ago, which shows a left peroneal thrombus. We will continue on current anticoagulation of weight-based Lovenox. Patient denies any chest discomforts or shortness of breath. Qualifiers: DVT location: lower extremity Affected thrombotic vein of extremity: other lower extremity vein Chronicity: acute Laterality: left Qualified Code(s) : I82.492 - Acute embolism and thrombosis of other specified deep vein of left lower extremity - Time Spent With Patient less than 15 minutes - Subjective Interval history: Patient appears relaxed and currently denies any discomforts shortness of breath. Patient was observed ambulating with walker and assistance and hallway and appears to be progressing well with physical therapy. Patient states that her dizziness has subsided since yesterday after having her pain medication changed to [place]. We will continue to monitor patient's symptoms. - Constitutional Vitals: Temp Pulse Resp BP Pulse Ox 98.4 F 74 17 97/67 95 05/30/18 10:00 05/30/18 10:00 05/30/18 10:00 05/30/18 10:00 05/30/18 10:00 General appearance: Present: cooperative, A&O X 3, pleasant, no acute distress, answers questions appropriately - Head Head exam: Present: atraumatic, normocephalic - Eye Eye exam: Present: PERRL, conjuntiva pink, sclera anicteric Pupils: Present: PERRL - Neck Neck exam general surgery: Present: supple, trachea midline. Absent: lymphadenopathy - Respiratory Respiratory exam: Present: CTAB. Absent: accessory muscle use, rales, rhonchi, wheezes - Cardiovascular Cardiovascular exam: Present: RRR, +S1, +S2. Absent: diastolic murmur, gallop, rubs, systolic murmur - GI/Abdominal GI/Abdominal exam: Present: normal bowel sounds, soft, no peritoneal signs. Absent: distended, tenderness - Extremities Exam Extremities exam: Present: warm, radial pulses palpable and symmetrical. Absent : calf tenderness, cyanotic, pedal edema Additional comments: Left knee remains slightly swollen and somewhat tender on palpation. No deformity noted to the knee. Midline surgical incision appears to be dry and intact. Slight amount of ecchymosis noted to left inner thigh. No erythema - Neurological Exam Neurological exam: Present: CN II-XII intact, oriented X3, no focal deficits. Absent: pronater drift, facial droop, speech deficit - Skin Skin exam: Present: dry, intact Internal Medicine: Result - Labs CBC & Chem 7: 05/29/18 11:33 05/29/18 11:33 - ABG Interpretation ABG results: PT/INR, D-dimer PT 13.9 Seconds (9.4-12.1) H 05/23/18 07:30 D-Dimer 6401 ng/mLFEU (0-500) H 05/25/18 02:30 - VTE Documentation of Mechanical Device: Graduated compression elastic hosiery Consult Discharge Plan - Plan Referrals: Ortiz Marti MD [Primary Care Provider] -
[2018-05-30] MEDS: Melatonin 3 MG TABLET PO SCH (20:39)
[2018-05-30] MEDS: Gabapentin 300 MG CAPSULE PO SCH (20:40)
[2018-05-30] MEDS: Ondansetron ODT 4 MG TAB.RAPDIS SL PRN (22:44)
[2018-05-31] MEDS ORDERED: hydrOXYzine pamoate 25 MG CAPSULE PO PRN (00:43)
[2018-05-31] MEDS: *HR* HYDROcodone/Acet 5/325 mg TABLET PO PRN ×4 (01:02→15:22)
[2018-05-31] MEDS: *HR* Enoxaparin 100 MG/ML SYRINGE SQ SCH ×2 (05:03→17:32)
[2018-05-31] MEDS: Insulin LISPRO 300 UNITS/3 ML VIAL SQ SCH ×4 (08:18→21:04)
[2018-05-31] MEDS: *HR* Metformin 500 MG TABLET PO SCH ×2 (08:19→16:13)
[2018-05-31] MEDS: Aspirin 81 MG TAB.CHEW PO SCH (08:19)
[2018-05-31] MEDS: Cholecalciferol (D-3) 1,000 UNIT TABLET PO SCH (08:19)
[2018-05-31] MEDS: tiZANidine 4 MG TABLET PO PRN (09:30)
--- NOTE | 2018-05-31 15:17 | Internal Med Progress Note ---
Date of Encounter: 05/31/18 Time of Encounter: 15:15 - Assessment and plan (1) Status post total left knee replacement Current Visit: Yes Status: Acute Assessment and plan: She is doing well postoperatively. She has been participating well in therapy and continues to progress. Edema is as expected after surgery. There is no sign of cellulitis, DVT, etc. (2) Hypertension Current Visit: Yes Status: Chronic Assessment and plan: Clinically stable. We will continue home regimen and follow. Qualifiers: Hypertension type: essential hypertension Qualified Code(s): I10 - Essential (primary) hypertension (3) Depression Current Visit: Yes Status: Chronic Assessment and plan: Clinically stable. We will continue home regimen and follow. Qualifiers: Depression Type: unspecified Qualified Code(s): F32.9 - Major depressive disorder, single episode, unspecified (4) GERD (gastroesophageal reflux disease) Current Visit: Yes Status: Chronic Assessment and plan: Clinically stable. We will continue home regimen and follow. Qualifiers: Esophagitis presence: without esophagitis Qualified Code(s): K21.9 - Gastro -esophageal reflux disease without esophagitis (5) Dizziness Current Visit: Yes Status: Acute Assessment and plan: As above, this seems to be related to opioid medication and will follow. - Subjective Interval history: Patient is without complaint. She is doing better on the hydrocodone. We discussed yesterday, about her medications and trying Ultram. This was neglected as of yesterday afternoon so will try today. I told her that we could go back to hydrocodone if she does not have adequate pain control with Ultram. She denies other problems and is participating well with therapy. Patient has no complaint of chest discomfort, dyspnea, orthopnea, palpitations, nausea or vomiting, constipation or diarrhea, other changes in bowel habits, difficulty with urination, rash or itching, or other new complaints, except as mentioned above. Review of systems is otherwise negative. I discussed management of her care with nursing staff. - Constitutional Vitals: Temp Pulse Resp BP Pulse Ox 98.4 F 68 17 134/69 95 05/31/18 06:53 05/31/18 06:53 05/31/18 06:53 05/31/18 06:53 05/31/18 06:53 General appearance: Present: cooperative, A&O X 3, pleasant, no acute distress, answers questions appropriately Exam: Examination: (Except as mentioned above): General: In no apparent distress. Alert and oriented 3. Nondiaphoretic. Head: Atraumatic and normocephalic. Respiratory: No use of accessory muscles. Lungs are clear throughout. Normal airflow. Cardiovascular: Regular rate and rhythm without murmur appreciated. Abdomen: Bowel sounds are normal. No hepatosplenomegaly mass or tenderness appreciated. Obese and therefore difficult to palpate deeply. Extremities: No cyanosis clubbing or change in edema. There is no cord or calf tenderness. Skin: Warm and non-diaphoretic with no new lesions noted. Internal Medicine: Result - Labs CBC & Chem 7: 05/29/18 11:33 05/29/18 11:33 - ABG Interpretation ABG results: PT/INR, D-dimer PT 13.9 Seconds (9.4-12.1) H 05/23/18 07:30 D-Dimer 6401 ng/mLFEU (0-500) H 05/25/18 02:30 - VTE Documentation of Mechanical Device: Graduated compression elastic hosiery Consult Discharge Plan - Plan Referrals: Ortiz Marti MD [Primary Care Provider] -
[2018-05-31] MEDS: Acetaminophen 325 MG TABLET PO PRN (16:13)
[2018-05-31] MEDS: Gabapentin 300 MG CAPSULE PO SCH (19:38)
[2018-05-31] MEDS: Melatonin 3 MG TABLET PO SCH (19:38)
[2018-05-31] MEDS: traMADol 50 MG TABLET PO PRN (22:33)
[2018-06-01] MEDS: *HR* Enoxaparin 100 MG/ML SYRINGE SQ SCH ×2 (05:32→16:54)
[2018-06-01] MEDS: traMADol 50 MG TABLET PO PRN ×2 (05:37→20:25)
[2018-06-01] MEDS: Insulin LISPRO 300 UNITS/3 ML VIAL SQ SCH ×4 (07:48→20:26)
[2018-06-01] MEDS: Aspirin 81 MG TAB.CHEW PO SCH (08:18)
[2018-06-01] MEDS: *HR* Metformin 500 MG TABLET PO SCH ×2 (08:18→16:54)
[2018-06-01] MEDS: Cholecalciferol (D-3) 1,000 UNIT TABLET PO SCH (08:19)
--- NOTE | 2018-06-01 09:32 | Internal Med Progress Note ---
Date of Encounter: 06/01/18 Time of Encounter: 09:31 - Assessment and plan (1) Status post total left knee replacement Current Visit: Yes Status: Acute Assessment and plan: Participating well with therapy. Continue PT and OT. Will follow progress. Pain controlled with current pain medication. Follow up with ortho as scheduled. (2) Anemia Current Visit: Yes Status: Acute Assessment and plan: Improved after transfusion 3 days ago. Qualifiers: Anemia type: unspecified type Qualified Code(s): D64.9 - Anemia, unspecified (3) DVT (deep venous thrombosis) Current Visit: Yes Status: Acute Assessment and plan: Continue Lovenox. Qualifiers: DVT location: lower extremity Affected thrombotic vein of extremity: other lower extremity vein Chronicity: acute Laterality: left Qualified Code(s) : I82.492 - Acute embolism and thrombosis of other specified deep vein of left lower extremity - Time Spent With Patient less than 15 minutes - Subjective Interval history: denies dizziness. states pain is controlled with tramadol. "feeling much better". Maintaining appetite and hydration. Denies fever, chills, vomiting or diarrhea. Bowels moving as normal. - Constitutional Vitals: Temp Pulse Resp BP Pulse Ox 98.4 F 78 16 126/85 96 06/01/18 06:00 06/01/18 06:00 06/01/18 06:00 06/01/18 06:00 06/01/18 06:00 General appearance: Present: cooperative, A&O X 3, pleasant, no acute distress, answers questions appropriately - Head Head exam: Present: atraumatic, normocephalic - Eye Eye exam: Present: PERRL, conjuntiva pink, sclera anicteric Pupils: Present: PERRL - Neck Neck exam general surgery: Present: supple, trachea midline. Absent: lymphadenopathy - Respiratory Respiratory exam: Present: CTAB. Absent: accessory muscle use, rales, rhonchi, wheezes - Cardiovascular Cardiovascular exam: Present: RRR, +S1, +S2. Absent: diastolic murmur, gallop, rubs, systolic murmur - GI/Abdominal GI/Abdominal exam: Present: normal bowel sounds, soft, no peritoneal signs. Absent: distended, tenderness - Extremities Exam Extremities exam: Present: warm, radial pulses palpable and symmetrical. Absent : calf tenderness, cyanotic, pedal edema - Incison Comments: Left knee surgical incision well approximated, no drainage or sign of infection. - Neurological Exam Neurological exam: Present: CN II-XII intact, oriented X3, no focal deficits. Absent: pronater drift, facial droop, speech deficit - Skin Skin exam: Present: dry, intact Internal Medicine: Result - Labs CBC & Chem 7: 05/29/18 11:33 05/29/18 11:33 - ABG Interpretation ABG results: PT/INR, D-dimer PT 13.9 Seconds (9.4-12.1) H 05/23/18 07:30 D-Dimer 6401 ng/mLFEU (0-500) H 05/25/18 02:30 - VTE Documentation of Mechanical Device: Graduated compression elastic hosiery Consult Discharge Plan - Plan Referrals: Ortiz Marti MD [Primary Care Provider] -
[2018-06-01] MEDS: tiZANidine 4 MG TABLET PO PRN ×3 (11:01→23:20)
[2018-06-01] MEDS: Gabapentin 300 MG CAPSULE PO SCH (20:23)
[2018-06-01] MEDS: Melatonin 3 MG TABLET PO SCH (20:23)
[2018-06-02] MEDS: traMADol 50 MG TABLET PO PRN ×3 (04:02→21:07)
[2018-06-02] MEDS: tiZANidine 4 MG TABLET PO PRN ×2 (05:24→21:07)
[2018-06-02] MEDS: *HR* Enoxaparin 100 MG/ML SYRINGE SQ SCH ×2 (05:24→18:52)
[2018-06-02 06:21] LABS: Basophils % 0.3 %; Eosinophils # 0.1 K/mcL (0.0-0.6); Eosinophils % 0.6 %; Hematocrit 30.7 % (35.3-44.9); Hemoglobin 10.4 g/dL (11.5-15.4); Immature Granulocytes % 1.5 % (0-4); Lymphocytes # 1.2 K/mcL (0.6-4.6); Lymphocytes % 12.8 %; Mean Corpuscular HGB Conc 33.9 g/dL (31.6-35.5); Mean Corpuscular Volume 91.6 fL (83.0-100.0); Mean Platelet Volume 10.6 fL (9.4-12.4); Monocytes # 0.8 K/mcL (0.0-1.3); Monocytes % 8.5 %; Neutrophils # 7.1 K/mcL (1.6-8.9); Platelet Count 263 K/mcL (140-400); Red Blood Count 3.35 M/mcL (3.82-4.97); Red Cell Distribution Width 13.7 % (11.5-14.5); Segmented Neutrophils % 76.3 %
[2018-06-02 06:40] LABS: BUN/Creatinine Ratio 25 (6-26); Blood Urea Nitrogen 18 mg/dL (8-23); Calcium 9.4 mg/dL (8.6-10.3); Carbon Dioxide 31 mEq/L (23-29); Chloride 96 mEq/L (98-107); Glucose 109 mg/dL (70-105); Osmolality,Calculated 280 (280-300); Potassium 3.5 mEq/L (3.5-5.1); Sodium 134 mEq/L (136-145); eGFR For Non-African Americans > 60 (> 60)
[2018-06-02] MEDS: Insulin LISPRO 300 UNITS/3 ML VIAL SQ SCH ×4 (07:35→20:46)
[2018-06-02] MEDS: Aspirin 81 MG TAB.CHEW PO SCH (07:57)
[2018-06-02] MEDS: Cholecalciferol (D-3) 1,000 UNIT TABLET PO SCH (07:57)
[2018-06-02] MEDS: *HR* Metformin 500 MG TABLET PO SCH ×2 (07:58→18:51)
--- NOTE | 2018-06-02 09:47 | Internal Med Progress Note ---
Date of Encounter: 06/02/18 Time of Encounter: 09:45 - Assessment and plan (1) Status post total left knee replacement Current Visit: Yes Status: Acute Assessment and plan: Participating well with therapy. Continue PT and OT. Will follow progress. Pain controlled with current pain medication. Follow up with ortho as scheduled. (2) Anemia Current Visit: Yes Status: Acute Assessment and plan: Improved after transfusion 3 days ago. Hemoglobin 10.4 today. Will continue to follow labs. Qualifiers: Anemia type: unspecified type Qualified Code(s): D64.9 - Anemia, unspecified (3) DVT (deep venous thrombosis) Current Visit: Yes Status: Acute Assessment and plan: Continue Lovenox. Qualifiers: DVT location: lower extremity Affected thrombotic vein of extremity: other lower extremity vein Chronicity: acute Laterality: left Qualified Code(s) : I82.492 - Acute embolism and thrombosis of other specified deep vein of left lower extremity - Time Spent With Patient 25 - 35 minutes - Subjective Interval history: Participating with therapy. Ambulating with Walker. states pain is controlled with tramadol. "feeling much better". Maintaining appetite and hydration. Denies fever, chills, vomiting or diarrhea. Bowels moving as normal. - Constitutional Vitals: Temp Pulse Resp BP Pulse Ox 97.9 F 70 17 98/64 99 06/02/18 06:52 06/02/18 06:52 06/02/18 06:52 06/02/18 06:52 06/02/18 06:52 General appearance: Present: cooperative, A&O X 3, pleasant, no acute distress, answers questions appropriately - Head Head exam: Present: atraumatic, normocephalic - Eye Eye exam: Present: PERRL, conjuntiva pink, sclera anicteric Pupils: Present: PERRL - Neck Neck exam general surgery: Present: supple, trachea midline. Absent: lymphadenopathy - Respiratory Respiratory exam: Present: CTAB. Absent: accessory muscle use, rales, rhonchi, wheezes - Cardiovascular Cardiovascular exam: Present: RRR, +S1, +S2. Absent: diastolic murmur, gallop, rubs, systolic murmur - GI/Abdominal GI/Abdominal exam: Present: normal bowel sounds, soft, no peritoneal signs. Absent: distended, tenderness - Extremities Exam Extremities exam: Present: warm, radial pulses palpable and symmetrical. Absent : calf tenderness, cyanotic, pedal edema - Incison Comments: Left knee surgical incision, dressing dry and intact. Slight surrounding edema. No sign of infection. - Neurological Exam Neurological exam: Present: CN II-XII intact, oriented X3, no focal deficits. Absent: pronater drift, facial droop, speech deficit - Skin Skin exam: Present: dry, intact Internal Medicine: Result - Labs CBC & Chem 7: 06/02/18 04:40 06/02/18 04:40 Labs: Short CBC 06/02/18 Range/Units 04:40 WBC 9.4 (4.3-11.1) K/mcL Hgb 10.4 L D (11.5-15.4) g/dL Hct 30.7 L (35.3-44.9) % Plt Count 263 (140-400) K/mcL Neutrophils # 7.1 (1.6-8.9) K/mcL BMP 06/02/18 04:40 Sodium 134 L Potassium 3.5 Chloride 96 L Carbon Dioxide 31 H BUN 18 Creatinine 0.73 Glucose 109 H Calcium 9.4 - ABG Interpretation ABG results: PT/INR, D-dimer PT 13.9 Seconds (9.4-12.1) H 05/23/18 07:30 D-Dimer 6401 ng/mLFEU (0-500) H 05/25/18 02:30 - VTE Documentation of Mechanical Device: Graduated compression elastic hosiery Consult Discharge Plan - Plan Referrals: Ortiz Marti MD [Primary Care Provider] -
[2018-06-02] MEDS: Ondansetron ODT 4 MG TAB.RAPDIS SL PRN (14:14)
[2018-06-02] MEDS: Gabapentin 300 MG CAPSULE PO SCH (21:07)
[2018-06-02] MEDS: Melatonin 3 MG TABLET PO SCH (21:07)
[2018-06-03] MEDS: traMADol 50 MG TABLET PO PRN ×4 (03:51→23:32)
[2018-06-03] MEDS: *HR* Enoxaparin 100 MG/ML SYRINGE SQ SCH ×2 (06:13→18:12)
[2018-06-03] MEDS: Insulin LISPRO 300 UNITS/3 ML VIAL SQ SCH ×4 (07:45→20:16)
[2018-06-03] MEDS: Cholecalciferol (D-3) 1,000 UNIT TABLET PO SCH (07:48)
[2018-06-03] MEDS: Aspirin 81 MG TAB.CHEW PO SCH (07:49)
[2018-06-03] MEDS: *HR* Metformin 500 MG TABLET PO SCH ×2 (07:49→16:15)
[2018-06-03] MEDS: tiZANidine 4 MG TABLET PO PRN ×2 (08:26→20:14)
[2018-06-03] MEDS ORDERED: 0.9 % Sodium Chloride 1,000 ML IVC SCH ×2 (09:15)
[2018-06-03] MEDS ORDERED: 0.9 % Sodium Chloride 1,000 ML ONE (10:15)
--- NOTE | 2018-06-03 13:05 | Internal Med Progress Note ---
Date of Encounter: 06/03/18 Time of Encounter: 13:03 - Assessment and plan (1) Status post total left knee replacement Current Visit: Yes Status: Acute Assessment and plan: Participating well with therapy. Continue PT and OT. Will follow progress. Pain controlled with current pain medication. Follow up with ortho as scheduled. (2) Anemia Current Visit: Yes Status: Acute Assessment and plan: Stable. Will continue to follow labs. Qualifiers: Anemia type: unspecified type Qualified Code(s): D64.9 - Anemia, unspecified (3) DVT (deep venous thrombosis) Current Visit: Yes Status: Acute Assessment and plan: Continue Lovenox. Qualifiers: DVT location: lower extremity Affected thrombotic vein of extremity: other lower extremity vein Chronicity: acute Laterality: left Qualified Code(s) : I82.492 - Acute embolism and thrombosis of other specified deep vein of left lower extremity - Time Spent With Patient less than 15 minutes - Subjective Interval history: Participating with therapy. Ambulating with Walker. states pain is controlled with tramadol. "feeling much better". Maintaining appetite and hydration. Denies fever, chills, vomiting or diarrhea. Bowels moving as normal. denies any more dizzy episodes. no ortostatic changes. - Constitutional Vitals: Temp Pulse Resp BP Pulse Ox 98.3 F 77 16 101/63 95 06/03/18 11:40 06/03/18 11:40 06/03/18 11:40 06/03/18 11:40 06/03/18 11:40 General appearance: Present: cooperative, A&O X 3, pleasant, no acute distress, answers questions appropriately - Head Head exam: Present: atraumatic, normocephalic - Eye Eye exam: Present: PERRL, conjuntiva pink, sclera anicteric Pupils: Present: PERRL - Neck Neck exam general surgery: Present: supple, trachea midline. Absent: lymphadenopathy - Respiratory Respiratory exam: Present: CTAB. Absent: accessory muscle use, rales, rhonchi, wheezes - Cardiovascular Cardiovascular exam: Present: RRR, +S1, +S2. Absent: diastolic murmur, gallop, rubs, systolic murmur - GI/Abdominal GI/Abdominal exam: Present: normal bowel sounds, soft, no peritoneal signs. Absent: distended, tenderness - Extremities Exam Extremities exam: Present: warm, radial pulses palpable and symmetrical. Absent : calf tenderness, cyanotic, pedal edema - Incison Comments: Left knee incision opened air. Well approximated. No drainage. Surrounding ecchymosis and slight swelling. - Neurological Exam Neurological exam: Present: CN II-XII intact, oriented X3, no focal deficits. Absent: pronater drift, facial droop, speech deficit - Skin Skin exam: Present: dry, intact Internal Medicine: Result - Labs CBC & Chem 7: 06/02/18 04:40 06/02/18 04:40 - ABG Interpretation ABG results: PT/INR, D-dimer PT 13.9 Seconds (9.4-12.1) H 05/23/18 07:30 D-Dimer 6401 ng/mLFEU (0-500) H 05/25/18 02:30 - Impressions Impressions Echocardiogram 06/02/18 13:23 Impressions: LVEF 60%. Mild left ventricular diastolic dysfunction. Normal right ventricular structure and function. Mild tricuspid regurgitation. No pulmonary hypertension. Left Ventricular Wall Motion: Rest Echo Findings All wall segments showed normal motion. Findings: Study Quality * Technically adequate exam. ECG Findings * Normal sinus rhythm. Left Ventricle * LVEF 60%. * Mild left ventricular diastolic dysfunction. * Normal LV wall thickness and chamber size. * No LVOT obstruction. Right Ventricle * Normal right ventricular structure and function. Left Atrium * Mildly dilated left atrium. Right Atrium * Normal right atrial size. Mitral Valve * Normal mitral valve structure. * No mitral stenosis. * No mitral regurgitation. Aortic Valve * No aortic regurgitation. * Trileaflet aortic valve. * No aortic stenosis. Tricuspid Valve * Tricuspid valve not well visualized. * Mild tricuspid regurgitation. * Estimated RA pressure is 3 mmHg. * Estimated RVSP is 21 mmHg. * No pulmonary hypertension. Pulmonic Valve * Pulmonic valve is not well visualized. * No pulmonic stenosis. * Trace pulmonic regurgitation. Pulmonary Artery * Pulmonary artery not well visualized. Aorta * Normally sized aortic root. Pericardium * There is no pericardial effusion present. Interatrial Septum * No evidence of PFO by color Doppler. IVC * The IVC is not dilated. - VTE Documentation of Mechanical Device: Graduated compression elastic hosiery Consult Discharge Plan - Plan Referrals: Ortiz Marti MD [Primary Care Provider] -
[2018-06-03] MEDS: Melatonin 3 MG TABLET PO SCH (20:13)
[2018-06-03] MEDS: Gabapentin 300 MG CAPSULE PO SCH (20:14)
[2018-06-03 21:12] LABS: Bilirubin,Urine Small (Negative); Blood,Urine Large (Negative); Clarity,Urine Slightly Cloudy (Clear); Glucose,Urine (UA) Normal (Normal); Ketones,Urine Negative (Negative); Leukocyte Esterase,Urine Negative (Negative); Nitrite,Urine Negative (Negative); Protein,Urine 30 mg/dL (Neg-Trace); Specific Gravity,Urine >= 1.030 (1.010-1.025); Urobilinogen,Urine Normal (Normal)
[2018-06-03 21:14] LABS: Amorphous Sediment,Urine Few (Few); Color,Urine Dark Yellow (Yellow); Hyaline Casts,Urine Few per lpf (None-Few); Squamous Epithelial Cell,Urine Few per lpf (None-Few)
[2018-06-04] MEDS: tiZANidine 4 MG TABLET PO PRN ×2 (03:06→20:14)
[2018-06-04] MEDS: *HR* Enoxaparin 100 MG/ML SYRINGE SQ SCH ×2 (05:46→17:06)
[2018-06-04] MEDS: traMADol 50 MG TABLET PO PRN ×2 (05:55→13:57)
--- NOTE | 2018-06-04 07:08 | Internal Med Progress Note ---
Date of Encounter: 06/04/18 Time of Encounter: 07:06 - Assessment and plan (1) Status post total left knee replacement Current Visit: Yes Status: Acute Assessment and plan: Patient appears relaxed and denies any shortness of breath but complains of slight pain to left lateral leg. No obvious injury noted. Patient states it is residual from wearing a brace. Patient states that pain to her knee has been minimal and well controlled with current medications. Patient states that she can has a follow-up with orthopedic surgeon this coming Saturday, during which time she was to have her amanda removed. Midline staple line to left knee appears healthy and intact. Left knee continues to have slight swelling. We will continue with physical therapy which is progressing well. (2) Hypertension Current Visit: Yes Status: Chronic Assessment and plan: Vital signs stable. We will continue with current medications. Qualifiers: Hypertension type: essential hypertension Qualified Code(s): I10 - Essential (primary) hypertension (3) GERD (gastroesophageal reflux disease) Current Visit: Yes Status: Chronic Assessment and plan: No acute issues. Patient will continue on current medications. Qualifiers: Esophagitis presence: without esophagitis Qualified Code(s): K21.9 - Gastro -esophageal reflux disease without esophagitis (4) Dizziness Current Visit: Yes Status: Acute Assessment and plan: Patient states that her frequency of her dizziness has diminished, but she did have another episode yesterday. Denied any nausea during that time. Denied any palpitations or near syncopal symptoms. Patient has had EKG and echocardiogram performed which were negative. Labs were nonacute. Vital signs stable We will continue to monitor. (5) DVT (deep venous thrombosis) Current Visit: Yes Status: Acute Assessment and plan: Patient's left leg has remained slightly swollen and she has had a venous Doppler performed on the left leg several days ago, which shows a left peroneal thrombus. We will continue on current anticoagulation of weight-based Lovenox. Patient denies any chest discomforts or shortness of breath. Qualifiers: DVT location: lower extremity Affected thrombotic vein of extremity: other lower extremity vein Chronicity: acute Laterality: left Qualified Code(s) : I82.492 - Acute embolism and thrombosis of other specified deep vein of left lower extremity - Time Spent With Patient less than 15 minutes - Subjective Interval history: Patient appears relaxed and currently denies any discomforts shortness of breath. Patient has had complaints of pain to her left lateral leg, which she states was secondary to a brace that she had there. No signs of injury noted. Patient also stated that she had another episode of dizziness yesterday afternoon for short while. Denied any nausea. States that she has not had any repeated episodes since that occurrence yesterday. Patient states that she continues with physical therapy and that it seems to continue to progress. Patient states that she has follow-up with orthopedics on Saturday. Patient states that her surgeon has requested that stables be left in until he removed some - Constitutional Vitals: Temp Pulse Resp BP Pulse Ox 98.9 F 85 17 114/56 94 06/03/18 17:53 06/03/18 17:53 06/03/18 17:53 06/03/18 17:53 06/03/18 17:53 General appearance: Present: cooperative, A&O X 3, pleasant, no acute distress, answers questions appropriately - Head Head exam: Present: atraumatic, normocephalic - Eye Eye exam: Present: PERRL, conjuntiva pink, sclera anicteric Pupils: Present: PERRL - Neck Neck exam general surgery: Present: supple, trachea midline. Absent: lymphadenopathy - Respiratory Respiratory exam: Present: CTAB. Absent: accessory muscle use, rales, rhonchi, wheezes - Cardiovascular Cardiovascular exam: Present: RRR, +S1, +S2. Absent: diastolic murmur, gallop, rubs, systolic murmur - GI/Abdominal GI/Abdominal exam: Present: normal bowel sounds, soft, no peritoneal signs. Absent: distended, tenderness - Extremities Exam Extremities exam: Present: warm, radial pulses palpable and symmetrical. Absent : calf tenderness, cyanotic, pedal edema Additional comments: Left knee with midline staple line which appears dry and intact. Slight swelling. - Neurological Exam Neurological exam: Present: CN II-XII intact, oriented X3, no focal deficits. Absent: pronater drift, facial droop, speech deficit - Skin Skin exam: Present: dry, intact Internal Medicine: Result - Labs CBC & Chem 7: 06/02/18 04:40 06/02/18 04:40 Labs: Urine 06/03/18 Range/Units 21:00 Urine Color Dark Yellow (Yellow) Urine Clarity Slightly Cloudy A (Clear) Urine pH 6.0 (5.0-8.0) pH Units Ur Specific Central >= 1.030 H (1.010-1.025) Urine Protein 30 H (Neg-Trace) mg/dL Urine Glucose (UA) Normal (Normal) mg/dL - ABG Interpretation ABG results: PT/INR, D-dimer PT 13.9 Seconds (9.4-12.1) H 05/23/18 07:30 D-Dimer 6401 ng/mLFEU (0-500) H 05/25/18 02:30 - Impressions Impressions Echocardiogram 06/02/18 13:23 Impressions: LVEF 60%. Mild left ventricular diastolic dysfunction. Normal right ventricular structure and function. Mild tricuspid regurgitation. No pulmonary hypertension. Left Ventricular Wall Motion: Rest Echo Findings All wall segments showed normal motion. Findings: Study Quality * Technically adequate exam. ECG Findings * Normal sinus rhythm. Left Ventricle * LVEF 60%. * Mild left ventricular diastolic dysfunction. * Normal LV wall thickness and chamber size. * No LVOT obstruction. Right Ventricle * Normal right ventricular structure and function. Left Atrium * Mildly dilated left atrium. Right Atrium * Normal right atrial size. Mitral Valve * Normal mitral valve structure. * No mitral stenosis. * No mitral regurgitation. Aortic Valve * No aortic regurgitation. * Trileaflet aortic valve. * No aortic stenosis. Tricuspid Valve * Tricuspid valve not well visualized. * Mild tricuspid regurgitation. * Estimated RA pressure is 3 mmHg. * Estimated RVSP is 21 mmHg. * No pulmonary hypertension. Pulmonic Valve * Pulmonic valve is not well visualized. * No pulmonic stenosis. * Trace pulmonic regurgitation. Pulmonary Artery * Pulmonary artery not well visualized. Aorta * Normally sized aortic root. Pericardium * There is no pericardial effusion present. Interatrial Septum * No evidence of PFO by color Doppler. IVC * The IVC is not dilated. - VTE Documentation of Mechanical Device: Graduated compression elastic hosiery Consult Discharge Plan - Plan Referrals: Ortiz Marti MD [Primary Care Provider] -
[2018-06-04] MEDS: Insulin LISPRO 300 UNITS/3 ML VIAL SQ SCH ×4 (08:13→21:09)
[2018-06-04] MEDS: Cholecalciferol (D-3) 1,000 UNIT TABLET PO SCH (08:19)
[2018-06-04] MEDS: Aspirin 81 MG TAB.CHEW PO SCH (08:19)
[2018-06-04] MEDS: *HR* Metformin 500 MG TABLET PO SCH ×2 (08:19→17:06)
[2018-06-04 13:27] LABS: Basophils % 0.4 %; Eosinophils # 0.1 K/mcL (0.0-0.6); Eosinophils % 0.7 %; Hematocrit 28.7 % (35.3-44.9); Hemoglobin 9.6 g/dL (11.5-15.4); Immature Granulocytes % 3.4 % (0-4); Lymphocytes # 0.8 K/mcL (0.6-4.6); Lymphocytes % 8.1 %; Mean Corpuscular HGB Conc 33.4 g/dL (31.6-35.5); Mean Corpuscular Hemoglobin 31.3 pg (28.0-33.3); Mean Corpuscular Volume 93.5 fL (83.0-100.0); Mean Platelet Volume 10.2 fL (9.4-12.4); Monocytes # 0.8 K/mcL (0.0-1.3); Monocytes % 7.8 %; Neutrophils # 7.8 K/mcL (1.6-8.9); Platelet Count 273 K/mcL (140-400); Red Blood Count 3.07 M/mcL (3.82-4.97); Segmented Neutrophils % 79.6 %
[2018-06-04 13:54] LABS: BUN/Creatinine Ratio 23 (6-26); Blood Urea Nitrogen 17 mg/dL (8-23); Calcium 9.2 mg/dL (8.6-10.3); Carbon Dioxide 29 mEq/L (23-29); Chloride 95 mEq/L (98-107); Glucose 107 mg/dL (70-105); Osmolality,Calculated 274 (280-300); Potassium 3.8 mEq/L (3.5-5.1); Sodium 131 mEq/L (136-145); eGFR For Non-African Americans > 60 (> 60)
[2018-06-04] MEDS: Melatonin 3 MG TABLET PO SCH (20:10)
[2018-06-04] MEDS: Gabapentin 300 MG CAPSULE PO SCH (20:11)
[2018-06-05] MEDS: traMADol 50 MG TABLET PO PRN (02:52)
[2018-06-05 07:15] VITALS: BP 130/72
[2018-06-05] MEDS: *HR* Enoxaparin 100 MG/ML SYRINGE SQ SCH (07:31)
[2018-06-05] MEDS: Insulin LISPRO 300 UNITS/3 ML VIAL SQ SCH (08:09)
[2018-06-05] MEDS: Aspirin 81 MG TAB.CHEW PO SCH (08:34)
[2018-06-05] MEDS: Cholecalciferol (D-3) 1,000 UNIT TABLET PO SCH (08:34)
[2018-06-05] MEDS: *HR* Metformin 500 MG TABLET PO SCH (08:34)
[2018-06-05] MEDS: tiZANidine 4 MG TABLET PO PRN (08:34)
[2018-06-05] MEDS ORDERED: Apixaban 5 MG TABLET PO SCH (09:00)
--- NOTE | 2018-06-05 09:39 | Discharge Summary ---
Orders not resulted at time of discharge: Pending orders 06/02/18 11:35 EKG [ECG 12 lead ECG] [ECG] Stat 06/09/18 04:00 Basic Metabolic Panel MO Complete Blood Count [HEME] MO 06/16/18 04:00 Basic Metabolic Panel MO Complete Blood Count [HEME] MO 06/23/18 04:00 Basic Metabolic Panel MO Complete Blood Count [HEME] MO 06/30/18 04:00 Basic Metabolic Panel MO Complete Blood Count [HEME] MO 07/07/18 04:00 Basic Metabolic Panel MO Complete Blood Count [HEME] MO 07/14/18 04:00 Basic Metabolic Panel MO Complete Blood Count [HEME] MO Date of Encounter: 06/05/18 Time of Encounter: 09:19 - Discharge Diagnosis (1) Status post total left knee replacement Priority: Primary Status: Acute Comments: Patient had a left TKR, with midline knee incision appearing to be healing well and intact. Patient continues to have slight swelling to left knee. Patient has progressed well with physical therapy since her stay at this facility. Pain has been well managed with oral medications. Patient will be discharged home and will continue with physical therapy as an outpatient. (2) Hypertension Priority: Secondary Status: Chronic Comments: No acute issues during her stay at this facility. Patient is to continue with current hypertension meds after discharge and follow-up with her PCP Qualifiers: Hypertension type: essential hypertension Qualified Code(s): I10 - Essential (primary) hypertension (3) GERD (gastroesophageal reflux disease) Priority: Secondary Status: Chronic Comments: No acute issues during her stay at this facility. Patient is to continue with her home medications and follow-up with PCP Qualifiers: Esophagitis presence: without esophagitis Qualified Code(s): K21.9 - Gastro -esophageal reflux disease without esophagitis (4) Dizziness Priority: Secondary Status: Acute Comments: Patient continues to have intermittent episodes of dizziness with occasional nausea. Patient's episodes last only several minutes. Patient has had a chronic issue with this over the past several years. He had multiple diagnostic tests done to include echocardiogram EKG carotid Dopplers and a tilt table test. All were negative except for tilt table test which did show positive response. Patient was started on Florinef and is recommended to follow up with her PCP. (5) DVT (deep venous thrombosis) Priority: Secondary Status: Acute Comments: Patient experienced a DVT and was started on Lovenox. We will be discharged on a look was 5 mg twice a day and is recommended to follow-up with PCP. Qualifiers: DVT location: lower extremity Affected thrombotic vein of extremity: other lower extremity vein Chronicity: acute Laterality: left Qualified Code(s) : I82.492 - Acute embolism and thrombosis of other specified deep vein of left lower extremity Hospital course: Ms. Gallardo is a 68 year old female who had a left total knee replacement at an [facility]. Per medical records patient had history of osteoarthritis, GERD , depression and hypertension. Patient states that she had an uneventful recovery and feels that she has been progressing well with physical therapy at the hospital prior to admission to this facility. Patient was admitted here for physical therapy due to deconditioning secondary to her left total knee replacement. Patient states that she has some pain during mobilization but that has been tolerable and her pain medications have been effective. During patient's stay at this facility she had a venous Doppler was performed which shows a left peroneal DVT. Patient was started on Lovenox and bridged over to a liquids which she will continue on discharge. Patient also experiences intermittent dizziness with occasional nausea during her stay at this facility. Patient states that this is been a chronic issue over the past several years. During her stay at this facility patient had multiple diagnostic testing done to include a echocardiogram, EKG, carotid Doppler and a tilt table test. All diagnostic tests were negative except for tilt table test which she was slightly positive. Patient did relate her dizziness 2 episodes of dehydration that she experienced in the past. Patient was started on Florinef prior to discharge and is recommended to follow up with her PCP. Patient is to continue follow-up with her orthopedic surgeon. - Time Spent with Patient Total time spent providing and/or coordinating discharge services: - Discharge Medications Home Medications: Aspirin 81 mg PO DAILY 02/22/17 [History] Dicyclomine [Bentyl] 10 mg PO QID 02/22/17 [History] Escitalopram [Lexapro] 10 mg PO DAILY 02/22/17 [History] Gabapentin [Neurontin] 300 mg PO HS 02/22/17 [History] Metformin HCl [Glucophage] 1,000 mg PO BID 02/22/17 [History] [place]-3/Dha/Epa/Fish Oil [Fish Oil 1,000 mg Softgel] 1 each PO DAILY 02/22/17 [ History] Pantoprazole Sodium [Protonix] 40 mg PO DAILY 02/22/17 [History] Polyethylene Glycol 3350 [MiraLAX Powder Bulk 17.9 Oz] 1 scoop PO DAILY [History] Solifenacin Succinate [Vesicare] 5 mg PO DAILY 02/22/17 [History] Sulindac 200 mg PO BID 02/22/17 [History] Tea Tree Oil [Tea Tree] 1 appl TP DAILY 02/22/17 [History] Tizanidine HCl 2 mg PO Q8H PRN 02/22/17 [History] Ranitidine HCl [Acid Polisher And Sander] 75 mg PO BID 09/19/17 [History] Topiramate [Topamax] 100 mg PO DAILY 09/19/17 [History] Allergies/Adverse Reactions: 3 Allergy/AdvReac Type Severity Reaction Status Date / Time No Known Allergies Allergy Verified 02/22/17 12:23 Date of admission: 05/22/18 11:53 Primary care physician: Ortiz Marti MD Consults: 05/22/18 12:31 Consult to Occupational Therapy [CONS] Routine Comment: Evaluate, develop and implement POC Reason for Consult: Left TKR Does patient have active BEDREST order?: No Is patient medically & hemodynamically stable?: Yes Consult to Physical Therapy [CONS] Routine Comment: Evaluate, develop and implement POC Reason for Consult: Left TKR Does patient have active BEDREST order?: No Is patient medically & hemodynamically stable?: Yes Consult to Recreational Therapy [CONS] Routine Comment: Evaluate, develop and implement POC Consult to Collet Driller [CONS] Routine Reason for SW Consult: Left TKR Discharging clinician: Moises Truong - Constitutional Vitals: Temp Pulse Resp BP Pulse Ox 98.6 F 77 16 130/72 95 06/05/18 07:00 06/05/18 07:00 06/05/18 07:00 06/05/18 07:00 06/05/18 07:00 General appearance: Present: cooperative, A&O X 3, pleasant, no acute distress, answers questions appropriately - Head Head exam: Present: atraumatic, normocephalic - Eye Eye exam: Present: PERRL, conjuntiva pink, sclera anicteric Pupils: Present: PERRL - Neck Neck exam general surgery: Present: supple, trachea midline. Absent: lymphadenopathy - Respiratory Respiratory exam: Present: CTAB. Absent: accessory muscle use, rales, rhonchi, wheezes - Cardiovascular Cardiovascular exam: Present: RRR, +S1, +S2. Absent: diastolic murmur, gallop, rubs, systolic murmur - GI/Abdominal GI/Abdominal exam: Present: normal bowel sounds, soft, no peritoneal signs. Absent: distended, tenderness - Extremities Exam Extremities exam: Present: warm, radial pulses palpable and symmetrical. Absent : calf tenderness, cyanotic, pedal edema Additional comments: Patient has a midline left knee incision which appears dry and intact with no erythema or ecchymosis noted. Continued slight swelling to left knee. - Neurological Exam Neurological exam: Present: CN II-XII intact, oriented X3, no focal deficits. Absent: pronater drift, facial droop, speech deficit - Skin Skin exam: Present: dry, intact - Patient Status Disposition: Home, Self-Care Condition: Good Functional capacity at discharge: uses cane/walker Overall status at discharge: patient is progressing back to baseline - Discharge Instructions Follow Up With: Ortiz Marti MD [Primary Care Provider] - - Diet and Activity Activity: ambulate only with your walker, as per physical therapy Diet: low fat, low cholesterol, low salt diet - VTE Documentation of Mechanical Device: Graduated compression elastic hosiery
== END 2018-06-05 12:00 | disposition home or self-care (01) | DRG 560 ==
LOC: INPGRE 05-22 11:53

== ENCOUNTER 2022-01-08 14:50 | Inpatient (IN) ==
[2022-01-08] MEDS ORDERED: Nitroglycerin 0.4 MG TAB.SUBL SL PRN (18:46)
[2022-01-08] MEDS: *HR* OxyCODONE Immed Rel 5 MG TABLET PO PRN (20:20)
[2022-01-08] MEDS: Gabapentin 300 MG CAPSULE PO SCH (20:20)
[2022-01-08] MEDS: Metoprolol XL (24 HR) Succ 25 MG TAB.ER.24H PO SCH (20:20)
[2022-01-08] MEDS: Famotidine 20 MG TABLET PO SCH (20:20)
[2022-01-09] MEDS: Cyanocobalamin (B-12) 1,000 MCG TABLET PO SCH (09:11)
[2022-01-09] MEDS: Gabapentin 300 MG CAPSULE PO SCH ×2 (09:11→20:57)
[2022-01-09] MEDS: Aspirin Enteric Coated 81 MG Tablet PO SCH (09:12)
[2022-01-09] MEDS: Magnesium Oxide 400 MG TABLET PO SCH (09:12)
[2022-01-09] MEDS: Cholecalciferol (D-3) 1,000 UNIT (25MCG) TABLET PO SCH (09:12)
[2022-01-09] MEDS: *HR* Metformin 500 MG TABLET PO SCH ×2 (09:12→16:06)
[2022-01-09] MEDS: *HR* Rivaroxaban 15 MG TABLET PO SCH (09:12)
[2022-01-09] MEDS: *HR* OxyCODONE Immed Rel 5 MG TABLET PO PRN ×2 (09:12→20:56)
[2022-01-09] MEDS: Famotidine 20 MG TABLET PO SCH ×2 (09:12→20:56)
[2022-01-09 10:28] LABS: Basophils # 0.1 K/mcL (0.0-0.2); Basophils % 0.6 %; Eosinophils # 0.1 K/mcL (0.0-0.6); Eosinophils % 1.6 %; Hematocrit 27.6 % (35.3-44.9); Hemoglobin 8.8 g/dL (11.5-15.4); Lymphocytes % 12.9 %; Mean Corpuscular HGB Conc 31.9 g/dL (31.6-35.5); Mean Corpuscular Volume 91.1 fL (83.0-100.0); Mean Platelet Volume 9.9 fL (9.4-12.4); Monocytes # 0.7 K/mcL (0.0-1.3); Monocytes % 8.9 %; Neutrophils # 5.7 K/mcL (1.6-8.9); Nucleated Red Blood Cells 0.4 /100 WBC (0); Platelet Count 343 K/mcL (140-400); Red Blood Count 3.03 M/mcL (3.82-4.97); Red Cell Distribution Width 13.1 % (11.5-14.5); White Blood Count 7.7 K/mcL (4.3-11.1)
[2022-01-09 10:34] LABS: BUN/Creatinine Ratio 19 (6-26); Blood Urea Nitrogen 15 mg/dL (8-23); Calcium 8.9 mg/dL (8.6-10.3); Carbon Dioxide 29 mEq/L (23-29); Chloride 100 mEq/L (98-107); Glucose 156 mg/dL (70-105); Magnesium 1.9 mg/dL (1.6-2.6); Osmolality,Calculated 286 (280-300); Potassium 3.8 mEq/L (3.5-5.1); Sodium 136 mEq/L (136-145); eGFR For African Americans > 60 (> 60); eGFR For Non-African Americans > 60 (> 60)
[2022-01-09 13:33] LABS: Bilirubin,Urine Negative (Negative); Blood,Urine Negative (Negative); Clarity,Urine Slightly Cloudy (Clear); Glucose,Urine (UA) Normal (Normal); Ketones,Urine Negative (Negative); Leukocyte Esterase,Urine Trace (Negative); Nitrite,Urine Negative (Negative); Protein,Urine Trace mg/dL (Neg-Trace); Specific Gravity,Urine >= 1.030 (1.010-1.025); Urobilinogen,Urine Normal (Normal)
[2022-01-09 13:46] LABS: Color,Urine Yellow (Yellow)
[2022-01-09 13:54] LABS: Mucus,Urine Moderate per lpf (None-Few)
[2022-01-09 13:56] LABS: Squamous Epithelial Cell,Urine Moderate per hpf (None-Few)
[2022-01-09 13:57] LABS: Bacteria,Urine Few per hpf (None-Few)
[2022-01-09 13:58] LABS: RBC,Urine 0-3 per hpf (0-3)
[2022-01-09] MEDS: Metoprolol XL (24 HR) Succ 25 MG TAB.ER.24H PO SCH (20:57)
[2022-01-10] MEDS: *HR* Metformin 500 MG TABLET PO SCH ×2 (08:12→16:01)
[2022-01-10] MEDS: Cholecalciferol (D-3) 1,000 UNIT (25MCG) TABLET PO SCH (08:12)
[2022-01-10] MEDS: Gabapentin 300 MG CAPSULE PO SCH ×2 (08:12→21:27)
[2022-01-10] MEDS: Cyanocobalamin (B-12) 1,000 MCG TABLET PO SCH (08:12)
[2022-01-10] MEDS: Famotidine 20 MG TABLET PO SCH ×2 (08:12→21:27)
[2022-01-10] MEDS: Magnesium Oxide 400 MG TABLET PO SCH (08:12)
[2022-01-10] MEDS: Aspirin Enteric Coated 81 MG Tablet PO SCH (08:12)
[2022-01-10] MEDS: *HR* Rivaroxaban 15 MG TABLET PO SCH (08:12)
[2022-01-10] MEDS: cefTRIAXone 2,000 MG in 0.9 % Sodium Chloride Mini Bag 100 ML IVPB SCH (10:17)
[2022-01-10] MEDS: diazePAM 2 MG TABLET PO PRN (21:26)
[2022-01-10] MEDS: *HR* OxyCODONE Immed Rel 5 MG TABLET PO PRN (21:26)
[2022-01-10] MEDS: Metoprolol XL (24 HR) Succ 25 MG TAB.ER.24H PO SCH (21:28)
[2022-01-11] MEDS: Cholecalciferol (D-3) 1,000 UNIT (25MCG) TABLET PO SCH (07:55)
[2022-01-11] MEDS: *HR* OxyCODONE Immed Rel 5 MG TABLET PO PRN ×2 (07:55→19:52)
[2022-01-11] MEDS: *HR* Metformin 500 MG TABLET PO SCH ×2 (07:55→16:14)
[2022-01-11] MEDS: Magnesium Oxide 400 MG TABLET PO SCH (07:55)
[2022-01-11] MEDS: Aspirin Enteric Coated 81 MG Tablet PO SCH (07:55)
[2022-01-11] MEDS: Famotidine 20 MG TABLET PO SCH ×2 (07:55→19:51)
[2022-01-11] MEDS: *HR* Rivaroxaban 15 MG TABLET PO SCH (07:56)
[2022-01-11] MEDS: Cyanocobalamin (B-12) 1,000 MCG TABLET PO SCH (07:56)
[2022-01-11] MEDS: Gabapentin 300 MG CAPSULE PO SCH ×2 (07:56→19:51)
[2022-01-11] MEDS: cefTRIAXone 2,000 MG in 0.9 % Sodium Chloride Mini Bag 100 ML IVPB SCH (07:56)
[2022-01-11] MEDS: diazePAM 2 MG TABLET PO PRN (19:51)
[2022-01-11] MEDS: Metoprolol XL (24 HR) Succ 25 MG TAB.ER.24H PO SCH (19:52)
[2022-01-12] MEDS: cefTRIAXone 2,000 MG in 0.9 % Sodium Chloride Mini Bag 100 ML IVPB SCH (07:56)
[2022-01-12] MEDS: *HR* Metformin 500 MG TABLET PO SCH ×2 (07:57→16:38)
[2022-01-12] MEDS: Gabapentin 300 MG CAPSULE PO SCH ×2 (07:57→20:16)
[2022-01-12] MEDS: Cholecalciferol (D-3) 1,000 UNIT (25MCG) TABLET PO SCH (07:57)
[2022-01-12] MEDS: Famotidine 20 MG TABLET PO SCH ×2 (07:57→20:18)
[2022-01-12] MEDS: Cyanocobalamin (B-12) 1,000 MCG TABLET PO SCH (07:57)
[2022-01-12] MEDS: Aspirin Enteric Coated 81 MG Tablet PO SCH (07:57)
[2022-01-12] MEDS: Magnesium Oxide 400 MG TABLET PO SCH (07:57)
[2022-01-12] MEDS: *HR* Rivaroxaban 15 MG TABLET PO SCH (07:57)
[2022-01-12] MEDS: *HR* OxyCODONE Immed Rel 5 MG TABLET PO PRN ×2 (08:05→20:15)
[2022-01-12] MEDS: Metoprolol XL (24 HR) Succ 25 MG TAB.ER.24H PO SCH (20:16)
[2022-01-13] MEDS: cefTRIAXone 2,000 MG in 0.9 % Sodium Chloride Mini Bag 100 ML IVPB SCH (08:11)
[2022-01-13] MEDS: Famotidine 20 MG TABLET PO SCH ×2 (08:12→20:12)
[2022-01-13] MEDS: Gabapentin 300 MG CAPSULE PO SCH ×2 (08:12→20:11)
[2022-01-13] MEDS: *HR* Metformin 500 MG TABLET PO SCH ×2 (08:12→15:54)
[2022-01-13] MEDS: Cholecalciferol (D-3) 1,000 UNIT (25MCG) TABLET PO SCH (08:12)
[2022-01-13] MEDS: Aspirin Enteric Coated 81 MG Tablet PO SCH (08:12)
[2022-01-13] MEDS: Cyanocobalamin (B-12) 1,000 MCG TABLET PO SCH (08:13)
[2022-01-13] MEDS: Magnesium Oxide 400 MG TABLET PO SCH (08:13)
[2022-01-13] MEDS: *HR* Rivaroxaban 15 MG TABLET PO SCH (08:13)
[2022-01-13] MEDS: *HR* OxyCODONE Immed Rel 5 MG TABLET PO PRN ×2 (08:34→20:12)
[2022-01-13] MEDS: diazePAM 2 MG TABLET PO PRN (20:11)
[2022-01-13] MEDS: Metoprolol XL (24 HR) Succ 25 MG TAB.ER.24H PO SCH (20:12)
[2022-01-14] MEDS: *HR* OxyCODONE Immed Rel 5 MG TABLET PO PRN ×3 (02:34→20:21)
[2022-01-14 06:15] LABS: Basophils % 0.6 %; Eosinophils # 0.2 K/mcL (0.0-0.6); Eosinophils % 2.3 %; Hematocrit 26.3 % (35.3-44.9); Hemoglobin 8.2 g/dL (11.5-15.4); Immature Granulocytes % 3.4 % (0-4); Lymphocytes # 1.3 K/mcL (0.6-4.6); Lymphocytes % 19.9 %; Mean Corpuscular HGB Conc 31.2 g/dL (31.6-35.5); Mean Corpuscular Hemoglobin 29.3 pg (28.0-33.3); Mean Corpuscular Volume 93.9 fL (83.0-100.0); Mean Platelet Volume 9.4 fL (9.4-12.4); Monocytes # 0.6 K/mcL (0.0-1.3); Monocytes % 9.4 %; Neutrophils # 4.2 K/mcL (1.6-8.9); Platelet Count 372 K/mcL (140-400); Red Cell Distribution Width 14.8 % (11.5-14.5); Segmented Neutrophils % 64.4 %; White Blood Count 6.5 K/mcL (4.3-11.1)
[2022-01-14 07:32] LABS: BUN/Creatinine Ratio 21 (6-26); Blood Urea Nitrogen 12 mg/dL (8-23); Calcium 8.9 mg/dL (8.6-10.3); Carbon Dioxide 30 mEq/L (23-29); Chloride 98 mEq/L (98-107); Glucose 107 mg/dL (70-105); Osmolality,Calculated 278 (280-300); Potassium 3.7 mEq/L (3.5-5.1); Sodium 134 mEq/L (136-145); eGFR For African Americans > 60 (> 60); eGFR For Non-African Americans > 60 (> 60)
[2022-01-14] MEDS: Cholecalciferol (D-3) 1,000 UNIT (25MCG) TABLET PO SCH (08:05)
[2022-01-14] MEDS: Magnesium Oxide 400 MG TABLET PO SCH (08:05)
[2022-01-14] MEDS: *HR* Metformin 500 MG TABLET PO SCH ×2 (08:05→17:34)
[2022-01-14] MEDS: Cyanocobalamin (B-12) 1,000 MCG TABLET PO SCH (08:05)
[2022-01-14] MEDS: Aspirin Enteric Coated 81 MG Tablet PO SCH (08:06)
[2022-01-14] MEDS: Famotidine 20 MG TABLET PO SCH ×2 (08:06→20:18)
[2022-01-14] MEDS: cefTRIAXone 2,000 MG in 0.9 % Sodium Chloride Mini Bag 100 ML IVPB SCH (08:06)
[2022-01-14] MEDS: *HR* Rivaroxaban 15 MG TABLET PO SCH (08:06)
[2022-01-14] MEDS: Gabapentin 300 MG CAPSULE PO SCH ×2 (08:06→20:18)
[2022-01-14 14:36] LABS: Bilirubin,Urine Negative (Negative); Blood,Urine Negative (Negative); Clarity,Urine Clear (Clear); Color,Urine Yellow (Yellow); Glucose,Urine (UA) Normal (Normal); Ketones,Urine Negative (Negative); Leukocyte Esterase,Urine Negative (Negative); Nitrite,Urine Negative (Negative); Protein,Urine Negative (Neg-Trace); Specific Gravity,Urine >= 1.030 (1.010-1.025); Urobilinogen,Urine Normal (Normal)
[2022-01-14] MEDS: Metoprolol XL (24 HR) Succ 25 MG TAB.ER.24H PO SCH (20:18)
[2022-01-15 04:58] LABS: Basophils # 0.1 K/mcL (0.0-0.2); Basophils % 0.9 %; Eosinophils # 0.2 K/mcL (0.0-0.6); Eosinophils % 2.6 %; Hematocrit 28.1 % (35.3-44.9); Hemoglobin 8.6 g/dL (11.5-15.4); Immature Granulocytes % 3.5 % (0-4); Lymphocytes # 1.4 K/mcL (0.6-4.6); Lymphocytes % 23.9 %; Mean Corpuscular HGB Conc 30.6 g/dL (31.6-35.5); Mean Corpuscular Hemoglobin 29.3 pg (28.0-33.3); Mean Corpuscular Volume 95.6 fL (83.0-100.0); Mean Platelet Volume 9.5 fL (9.4-12.4); Monocytes # 0.5 K/mcL (0.0-1.3); Monocytes % 9.2 %; Neutrophils # 3.4 K/mcL (1.6-8.9); Nucleated Red Blood Cells 0.4 /100 WBC (0); Platelet Count 384 K/mcL (140-400); Red Blood Count 2.94 M/mcL (3.82-4.97); Red Cell Distribution Width 15.2 % (11.5-14.5); Segmented Neutrophils % 59.9 %; White Blood Count 5.7 K/mcL (4.3-11.1)
[2022-01-15 05:14] LABS: BUN/Creatinine Ratio 19 (6-26); Blood Urea Nitrogen 13 mg/dL (8-23); Calcium 8.9 mg/dL (8.6-10.3); Carbon Dioxide 31 mEq/L (23-29); Chloride 101 mEq/L (98-107); Glucose 100 mg/dL (70-105); Osmolality,Calculated 286 (280-300); Sodium 138 mEq/L (136-145); eGFR For African Americans > 60 (> 60); eGFR For Non-African Americans > 60 (> 60)
[2022-01-15 06:55] VITALS: BP 115/67; PULSE 60; RESP 14; TEMP 98.4; O2SAT 91
[2022-01-15] MEDS: cefTRIAXone 2,000 MG in 0.9 % Sodium Chloride Mini Bag 100 ML IVPB SCH (08:15)
[2022-01-15] MEDS: Aspirin Enteric Coated 81 MG Tablet PO SCH (08:16)
[2022-01-15] MEDS: Magnesium Oxide 400 MG TABLET PO SCH (08:16)
[2022-01-15] MEDS: Famotidine 20 MG TABLET PO SCH (08:16)
[2022-01-15] MEDS: Cholecalciferol (D-3) 1,000 UNIT (25MCG) TABLET PO SCH (08:16)
[2022-01-15] MEDS: Cyanocobalamin (B-12) 1,000 MCG TABLET PO SCH (08:16)
[2022-01-15] MEDS: *HR* Metformin 500 MG TABLET PO SCH (08:16)
[2022-01-15] MEDS: *HR* Rivaroxaban 15 MG TABLET PO SCH (08:16)
[2022-01-15] MEDS: Gabapentin 300 MG CAPSULE PO SCH (08:16)
== END 2022-01-15 14:25 | disposition home or self-care (01) | DRG 312 ==
LOC: INPGRE 18:39
PROVIDERS: ADMIT Family Medicine; ATTEND Family Medicine